=== PATIENT | male | born 1990 | race Caucasian/White ===

== ENCOUNTER 2017-10-18 04:30 | Emergency (ER) | payer SELFPAY ==
[2017-10-18 02:32] VITALS: BP 141/77; PULSE 66; RESP 16; TEMP 36.3; O2SAT 98; BMI 30.7
--- NOTE | 2017-10-18 02:38 | CT_ITS ---
STUDY: CT ABDOMEN AND PELVIS WITH CONTRAST - VENOGRAM REASON FOR EXAM: Male, 27 years old. Right upper quadrant pain. RADIATION DOSAGE (If Supplied By Facility): CTDIvol = ( 17.21 ) mGy, DLP = ( 1223.63 ) mGycm TECHNIQUE: Transaxial images were obtained from the dome of the diaphragm to the symphysis pubis without oral contrast. 100ml ml of Isovue 300 contrast was administered. Multiplanar coronal and sagittal images were reformatted. CT venogram protocol utilized, with delayed images performed during venous phase. Individualized Dose Optimization Techniques Were Used For This CT. COMPARISON: September 29, 2013 FINDINGS: The visualized lung bases are unremarkable. The visualized portions of the heart are within normal limits. Normal liver. There are gallstones present. Normal spleen. Normal pancreas. Normal bilateral adrenal glands. Normal right kidney. Normal left kidney. Normal visualized stomach. Normal small intestine. Normal colon. The appendix is visualized and appears normal. Normal abdominal aorta. No retroperitoneal adenopathy. IVC is patent. Normal urinary bladder. There is a small umbilical hernia containing fat. Normal osseous structures. CT/Abdomen/Pelvis W IV Cont ONLY IMPRESSION: No acute intra-abdominal process. Cholelithiasis. Small fat-containing umbilical hernia. Electronically Signed: Lara Burton MD at 16:58 EDT Tel , Service support ,
[2017-10-18 02:45] LABS: Absolute Lymphocyte Count 2.87 X10^3/ul (0.83-4.51); Absolute Neutrophil Count 3.5 X10^3/uL (2.0-7.7); Basophil# 0.04 X10^3/uL; Basophil% 0.6 % (0-1); Eosinophil# 0.36 X10^3/uL; Hematocrit 42.5 % (40-54); Lymphocyte # 2.87 X10^3/ul (4.0); Lymphocyte % 39.7 % (19-41); Mean Corp Hgb Conc 35.3 g/gl (32-36); Mean Corpuscular Hgb 32.1 pg (27.0-32.0); Mean Corpuscular Volume 90.8 fL (80-94); Monocyte% 6.9 % (0-10); Neutrophil # 3.45 X10^3/uL (2.7-7.7); Neutrophil % 47.7 % (47-70); Platelet Count 173 K/mm3 (150-450); RBC Distribution Width CV 13.1 % (11.6-14.6); RBC Distribution Width SD 43.2 fl (35.1-43.9); Red Blood Count 4.68 M/mm3 (4.6-6.2); White Blood Count 7.2 K/mm3 (4.4-11.0)
[2017-10-18] MEDS: proMETHazine 25 MG/ML Syringe 6.25 MG IV (02:46)
[2017-10-18] MEDS: 0.9% Normal Saline 1,000 ML 1000 ML IV (02:46)
[2017-10-18] MEDS: Morphine 4 MG/ML Syringe IV (02:47)
[2017-10-18 02:49] LABS: POSITIVE COUNT NO; POSITIVE DIFFERENTIAL NO; POSITIVE MORPHOLOGY NO
[2017-10-18 03:03] LABS: ALB/GLOB Ratio 1.2 RATIO (0.9-2.4); AST(SGOT) 20 U/L (15-37); Alanine Aminotransfer ALT/SGPT 38 U/L (16-61); Albumin, Serum 3.8 g/dL (3.2-5.0); Alkaline Phosphatase 89 U/L (45-117); Anion Gap 6 (5-15); BUN 15 mg/dL (7-18); Calcium,Total 8.7 mg/dL (8.5-10.1); Chloride 109 mmol/L (98-107); Creatinine, Serum 1.07 mg/dL (0.70-1.30); EST Glomerular Filtration Rate 88 mL/min (>60); Est Glom Filt Rate - Afr Amer 106 mL/min (>60); Estimated Creatinine Clearance 120.57 ml/min; Globulin 3.2 g/dL (2.2-4.2); Glucose 97 mg/dL (74-106); Lipase 394 U/L (73-393); Potassium 3.9 mmol/L (3.5-5.1); Sodium Level 142 mmol/L (136-145)
--- NOTE | 2017-10-18 04:15 | ED.VISSUMM ---
- ER Visit Summary Date of Service: 10/18/17 Chief Complaint: [] Abdominal pain History of Present Illness: The patient is a 27 M [] complaining of abdominal pain beginning 1 hour prior to arrival. Reports nausea. Denies vomiting. Denies fever. Denies similar previous episodes of abdominal pain denies recent illness. Past medical history of GERD. Past rectal history of tonsils and adenoids and cyst removal from the temporal area. Physical Examination: [] Afebrile, vital signs stable. 27-year-old male in no acute distress. Degeneration of the abdomen reveals a right upper quadrant and epigastric tenderness. No Meraz's sign. No guarding or rebound tenderness. Remainder of exam is unremarkable. Test Results: [] CBC, BMP, LFTs, lipase all within normal limits. CT of the abdomen pelvis with IV contrast is pending at this time. Emergency Department Course and Treatment: [] Given intravenous fluids, Phenergan, morphine. On serial exam had improvement of symptoms. Treatment Plan: [] Disposition: [] Discharge, stable. Impression: [] Abdominal pain, unknown etiology This note was generated with [employer] dictation software. It may contain incorrect words, spelling, and punctuation that were not noted in review of the chart prior to signing ED Disposition - Plan for ED Patient: Chief Complaint: Abd Pain Referrals: Care Physician,No Primary [Primary Care Provider] -
--- NOTE | 2017-10-18 04:30 | DT_ITS ---
This patient was seen during an EMR downtime October 18, 2017 - October 25, 2017. This patient may have a combination of paper and electronic documentation or all paper documentation. All documentation is viewable within the e-chart portion of [facility] for each patient visit.
--- NOTE | 2017-10-25 08:05 | ED.RN ---
see dowtime documentation
== END 2017-10-18 08:23 | disposition home or self-care (01) ==
LOC: ED 10-20 10:51
PROVIDERS: Emergency Provider Emergency Medicine
DX: K21.9 Gastro-esophageal reflux disease without esophagitis (principal); F17.200 Nicotine dependence, unspecified, uncomplicated
CPT/HCPCS: 74177; 80053; 83690; 85025; 96374; 96375; 99282; J7030; Q9967

== ENCOUNTER 2018-05-28 16:45 | Emergency (ER) | payer OTHER, SELFPAY ==
[2018-05-28 16:47] VITALS: BP 128/82; PULSE 81; RESP 16; TEMP 37.1; O2SAT 100; BMI 29.5
--- NOTE | 2018-05-28 16:56 | US_ITS ---
STUDY: ABDOMINAL ULTRASOUND - RIGHT UPPER QUADRANT REASON FOR VISIT: Male, 28 years old. Right upper quadrant pain, nausea. TECHNIQUE: Ultrasound evaluation of the right upper quadrant was performed with real-time and static andujar-scale imaging. TECHNICAL QUALITY: Adequate. COMPARISON: CT abdomen pelvis 10/18/2017. FINDINGS: Liver: The liver measures 17.5 cm. There is normal echogenicity of the liver. The bile ducts are within normal limits. There is hepatic color flow. The direction of portal flow is hepatopetal. There is no demonstrated mass lesion. Gallbladder: Normal distended gallbladder. The gallbladder wall measures 4 mm. There is a positive sonographic Meraz's sign. There is no pericholecystic fluid. The gallbladder is filled with shadowing stones and sludge. Common Bile Duct (C.B.D.): The common bile duct measures 5 mm. Pancreas: Normal size of the head, body and tail of the pancreas. There is normal echogenicity of the pancreas. There is no demonstrated pancreatic mass or cyst. Right Kidney: Normal size of the right kidney. The right kidney measures 12.6 x 5.1 x 5.5 cm. Normal renal cortex. The right cortex measures 1.8 cm. There is no demonstrated renal mass or cyst. There is no right hydronephrosis. US/Gallbladder IMPRESSION: Cholelithiasis and gallbladder sludge with positive sonographic Meraz's sign, consistent with acute cholecystitis. Electronically Signed: Cori Cisneros MD at 19:56 EST Tel , Service support ,
--- NOTE | 2018-05-28 16:58 | ED.VISSUMM ---
- ER Visit Summary Date of Service: 05/28/18 Chief Complaint: Right upper quadrant abdominal pain History of Present Illness: The patient is a 28 M who has right upper quadrant abdominal pain. Is been increasing for the past 4 days. It sharp and in the right upper quadrant and radiates around to his back. Food makes it worse. He thought it might have been ulcers so he has been trying Rolaids and Zantac along with his daily omeprazole with no relief. He has nausea without vomiting. No diarrhea. Some slight constipation. He had an evaluation earlier last year that showed gallstones. He followed up with Dr. Espinoza who did endoscopies and found H. pylori so he completed the antibiotic regimen. Physical Examination: Vital signs reviewed. HEENT exam unremarkable. Heart is regular rate and rhythm without murmurs. Lungs are clear to auscultation. Abdomen is soft with tenderness in the right upper quadrant. Extremities reveal no edema. Skin exam normal. Neurologic exam normal. Test Results: Laboratory studies normal. Ultrasound reveals stones with sludge. There is a positive Meraz sign. Radiologist is remarking of positive cholecystitis Emergency Department Course and Treatment: I spoke with Dr. Espinoza. Patient received 2 doses of pain medications. He stated that the patient would likely not have surgery until Wednesday if the patient was okay with staying until Wednesday he will see the patient. Patient states that he would rather go home and come back on Wednesday. I will give him Rimrock for pain. He will follow-up with Dr. Espinoza Treatment Plan: [] Disposition: Discharge Impression: Cholelithiasis This note was generated with [employer] dictation software. It may contain incorrect words, spelling, and punctuation that were not noted in review of the chart prior to signing ED Disposition - Plan for ED Patient: Chief Complaint: Abd Pain Referrals: Care Physician,No Primary [Primary Care Provider] -
[2018-05-28] MEDS: Ondansetron 4 MG/2 ML Vial IV (17:11)
[2018-05-28] MEDS: Morphine 4 MG/ML Syringe IV (17:12)
[2018-05-28 17:26] LABS: Absolute Neutrophil Count 6.4 X10^3/uL (2.0-7.7); Basophil# 0.06 X10^3/uL; Basophil% 0.6 % (0-1); Eosinophil# 0.47 X10^3/uL; Eosinophils% 4.6 % (0-5); Hematocrit 40.1 % (40-54); Hemoglobin 14.2 g/dl (13.0-16.5); Lymphocyte % 25.7 % (19-41); Mean Corp Hgb Conc 35.4 g/gl (32-36); Mean Corpuscular Hgb 31.6 pg (27.0-32.0); Mean Corpuscular Volume 89.3 fL (80-94); Mean Platelet Vol. 10.1 fl (6.2-12.0); Monocyte# 0.54 X10^3/uL; Monocyte% 5.3 % (0-10); Neutrophil # 6.42 X10^3/uL (2.7-7.7); Neutrophil % 63.6 % (47-70); Platelet Count 208 K/mm3 (150-450); RBC Distribution Width CV 12.6 % (11.6-14.6); RBC Distribution Width SD 40.8 fl (35.1-43.9); Red Blood Count 4.49 M/mm3 (4.6-6.2); White Blood Count 10.1 K/mm3 (4.4-11.0)
[2018-05-28 17:27] LABS: POSITIVE COUNT NO; POSITIVE DIFFERENTIAL NO; POSITIVE MORPHOLOGY NO
[2018-05-28 17:54] LABS: AST(SGOT) 18 U/L (15-37); Alanine Aminotransfer ALT/SGPT 25 U/L (16-61); Albumin, Serum 3.9 g/dL (3.2-5.0); Alkaline Phosphatase 84 U/L (45-117); Anion Gap 9 (5-15); BUN 12 mg/dL (7-18); BUN/Creat Ratio 14.1 RATIO (10-20); Bilirubin, Direct < 0.05 mg/dL (0.00-0.30); Calcium,Total 8.6 mg/dL (8.5-10.1); Chloride 108 mmol/L (98-107); Creatinine, Serum 0.85 mg/dL (0.70-1.30); EST Glomerular Filtration Rate 114 mL/min (>60); Est Glom Filt Rate - Afr Amer 138 mL/min (>60); Estimated Creatinine Clearance 150.43 ml/min; Globulin 3.2 g/dL (2.2-4.2); Glucose 109 mg/dL (74-106); Lipase 289 U/L (73-393); Potassium 3.8 mmol/L (3.5-5.1); Protein, Total 7.1 g/dL (6.4-8.2); Sodium Level 141 mmol/L (136-145)
[2018-05-28] MEDS: HYDROmorphone 1 MG/ML Syringe IV (18:32)
[2018-05-28 18:52] VITALS: BP 133/64; PULSE 63; RESP 14; O2SAT 99
--- NOTE | 2018-05-28 20:20 | ED.DEP ---
ED Disposition - Plan for ED Patient: Disposition: Home or Assisted Living Chief Complaint: Abd Pain Instructions: ED Abdominal Pain Gallstone Poss Prescriptions: Oxycodone HCl/Acetaminophen [Percocet 5/325] 1 tab PO Q6H PRN PRN 3 Days #10 tab PRN Reason: Pain Referrals: Care Physician,No Primary [Primary Care Provider] -
[2018-05-28 20:27] VITALS: BP 130/66; PULSE 70; RESP 16; O2SAT 98
== END 2018-05-28 20:28 | disposition home or self-care (01) ==
PROVIDERS: Emergency Provider Emergency Medicine
DX: K80.20 Calculus of gallbladder without cholecystitis without obstruction (principal); K59.00 Constipation, unspecified; Z72.0 Tobacco use
CPT/HCPCS: 76705; 80048; 80076; 83690; 85025; 96374; 96375; 99283; J7030; J2405

== ENCOUNTER 2018-05-30 08:52 | Day surgery (SDC) | payer OTHER, SELFPAY ==
[2018-05-30] VITALS (9 sets, daily range): BP systolic 104–142; BP diastolic 49–80; PULSE 86–110; RESP 16–18; TEMP 36.8–37.6; O2SAT 93–99; BMI 29.5
--- NOTE | 2018-05-30 | GALL_PTH ---
PATIENT: DERRICK RAYMUNDO LOC[place] [facility] [place][id number] AGE/SX: 28/M ROOM: RE05/30/[address]: Dr. Dustin Shanks MD : 1990 BED: DIS: 05/30/2018 SPEC #: [id number] RECD: 05/30/18 14:20 STATUS: DEVI NANCY #: [id number] SALOME: 05/30/18 00:[address]: Dustin Shanks DEPT: SURGICAL PATHOLOGY RECD BY: Fortino Merrill ENTERED: 05/30/18 14:20 SP TYPE: IRASEMA NGUYEN DR: No Primary Care Phys Tissues: Gallbladder, NOS Procedures: Surgery Specimen Level III HEADER OPERATION: Laparoscopic cholecystectomy with IOC PRE-OP DIAGNOSIS: Cholelithiasis, abdominal pain TISSUE SUBMITTED: Gallbladder MICROSCOPIC DIAGNOSIS Gallbladder, cholecystectomy: Acute and chronic cholecystitis and cholelithiasis with denudation and autolytic changes of mucosa. Benign lymphoid tissue. See comment. AM:magdy 05/31/18 COMMENT A fragment of benign lymphoid tissue is present adjacent to the wall of the gallbladder and in the subcutaneous tissue. MICROSCOPIC DESCRIPTION Slides are reviewed. GROSS DESCRIPTION Received is one container labeled with the patient's name and designated gallbladder. The specimen consists of a gallbladder measuring 10 cm in length and up to 5 cm in diameter. The external surface is pink-dumont, smooth and glistening for the most part. Focally it is granular, hemorrhagic and contains cautery artifact. The gallbladder contains hemorrhagic bile and a few brownish stones measuring in aggregate 0.5 x 0.8 x 0.3 cm and 0.1 to 0.3 cm in greatest dimension. The mucosa is congested and hemorrhagic. The gallbladder wall measures up to 0.3 cm in thickness. Video Tape Transferrer sections from the gallbladder and the cystic duct are submitted in one cassette. / SJ:magdy 05/30/18 TC:2 CPT: 04889
--- NOTE | 2018-05-30 09:00 | RAD_ITS ---
HISTORY: ABDOMINAL PAIN COMPARISON: Gallbladder ultrasound dated 05/28/2018 TECHNIQUE: Intraoperative cholangiogram FINDINGS: Intraoperative cholangiogram was performed. There is appropriate contrast within the intrahepatic biliary ductal system as well as the common bile duct. There is a punctate area of filling defect within the cystic duct measuring less than 1 cm. Unsure if this represents a stone. No surgical clips are noted to represent cholecystectomy at this time. There appears to be multiple filling defects within the gallbladder suggesting stones. IMPRESSION: Intraoperative cholangiogram with possible filling defect in the cystic duct. Contrast seen within the gallbladder with multiple filling defects suggesting stones. Please see performing physician report for full details. Electronically Signed: Lai Carcamo DO at 12:52 EST Tel , Service support , RAD/Cholangiogram/ O R,Initial
--- NOTE | 2018-05-30 09:03 | EKG12_ITS ---
Test Reason : PREOP Blood Pressure : / mmHG Vent. Rate : 085 BPM Atrial Rate : 085 BPM P-R Int : 158 ms QRS Dur : 094 ms QT Int : 356 ms P-R-T Axes : 056 054 029 degrees QTc Int : 423 ms Normal sinus rhythm Normal ECG Confirmed by ROMULO GARIBAY, MO ([id number]), photographic editor MAGEN RUIZ ([id number]) on 06/02/2018 4:20:50 PM Referred By: Dustin Shanks Confirmed By:MO SEBASTIAN MD
--- NOTE | 2018-05-30 09:18 | PCM.HP.BLA ---
History and Physical Date of Admission: 05/30/18 HISTORY AND PHYSICAL ? Wing Bower 1990 ? REFERRING PHYSICIAN: ??[facility] ? CHIEF COMPLAINT: ??Consult (Consult Gallbladder) ? HPI: Wing is a 27 year old male with a complaint of right upper quadrant pain. ?The patient has had symptoms of right upper quadrant pain for 2 weeks. ?The symptoms were severe on October 18, 2017. ?The pain does ?radiate to the back and shoulder. ?Food does ?aggravate his symptoms. ?Alleviating factors include: none. ? The patient was seen by the emergency room physician on that date. ?Wing underwent a CT scan. ?These tests demonstrated cholelithiasis. The patient is referred for evaluation and treatment. ? The patient however still has a relatively complex history. ?Aside from that event, he notes significant reflux that has been progressive for approximately 6 weeks. ?He will occasionally last for a week and typically presents the duration of the day. ?He notes vomiting and pain with these episodes. ?He says omeprazole helps the pain, but this still occurs not infrequently. ? The patient also notes relatively irregular bowel activity. ?He notes up to 4-5 bowel movements per day which are variable from formed to liquid. ?He denies issues with constipation. ?He states he notes blood in his stools 2-3 times per week. ?Occasionally it dark or bright red, but occasionally has dark to black stool. ?He notes occasional pain with wiping. ? He has not had previous upper or lower endoscopy. ? The patient notes he is a heavy smoker. ?He denies alcohol use. ?He does take ibuprofen regularly. ? ?I performed upper and lower?endoscopy on November 19, 2017. ?The patient was found to have duodenitis with ulcerations, gastritis and distal esophagitis. ?Colonoscopy was unremarkable. ?Pathology demonstrated: ? FINAL DIAGNOSIS 1. Stomach, antrum, biopsy (A) - Antral type gastric mucosa with changes of chronic active Helicobacter gastritis. - Helicobacter organisms identified on H&E. 2. Esophagogastric junction, biopsy (B) - Inflamed cardiac type gastric mucosa, negative for intestinal metaplasia. - Fragments of squamous mucosa with no diagnostic abnormalities. 3. Colon, random, biopsy (C) - Colonic mucosa with no diagnostic abnormalities. MC/gp 11/30/2017 ? ? The patient notes a solution of his?complaints since the procedure?and starting Prilosec 40 mg daily. ?I did not initially have the results demonstrating H. pylori gastritis?He noted resolution of those complaints after H. Pylori treatment. ? He now presented to [facility] ER with RUQ pain through to his back. ?U/S demonstrated cholelithiasis with a positive Meraz's sign. ?Labs were normal. ?He was given Percocet and discharged with instructions to return if his pain did not improve. ? SIGNIFICANT MEDICAL PROBLEMS: PAST MEDICAL HISTORY PAST MEDICAL HISTORY Diagnosis Date ? Chronic sphenoidal sinusitis ? per ct ? Closed fracture of lateral malleolus 12/15 ? Migraine, unspecified, with intractable migraine, so stated, without mention of status migrainosus ? ? Migraine, referred Dr Tilley neuro: ? Other closed fractures of distal end of radius (alone) 06/18 ? left ? Other closed fractures of distal end of radius (alone) ? left ? Other closed fractures of distal end of radius (alone) ? left ? Snoring ? ? ? OPERATIONS: PAST SURGICAL HISTORY PAST SURGICAL HISTORY Procedure Laterality Date ? CIRCUMCISION,OTHR ? ? ? COLONOSCOP W/ OR W/O [facility] SPEC ? 11/19/2017 ? Colonoscopy ? EGD W/O OR W/BRUSH/WASH ? 11/19/2017 ? EGD ? PAST SURGICAL HISTORY OF ? ? ? [facility]- cyst removed from [facility] ? REMOVAL ADENOIDS,PRIMARY,<12 Y/O ? ? ? Adenoidectomy ? REMOVAL OF TONSILS,<12 Y/O ? ? ? Tonsillectomy ? SEPTOPLASTY ? 11/2016 ? TOOTH EXTRACTION ? CURRENT MEDICATIONS: CURRENT MEDICATIONS Current Outpatient Prescriptions: Omeprazole (PRILOSEC) 40 mg capsule Take 1 capsule by mouth twice daily for 14 days. Disp: 28 capsule Rfl: 0 Omeprazole (PRILOSEC) 40 mg capsule Take 1 capsule by mouth once daily. Disp: 30 capsule Rfl: 0 Omeprazole (PRILOSEC) 40 mg capsule Take 1 capsule by mouth once daily. Disp: 30 capsule Rfl: 2 NAPROXEN (NAPROSYN ORAL) Take by mouth. Disp: Rfl: CYANOCOBALAMIN, VITAMIN B-12, (VITAMIN B-12 ORAL) Take by mouth. Disp: Rfl: ondansetron orally disintegrating (ZOFRAN ODT) 4 mg disintegrating tablet Take 1 tablet by mouth every 6 hours as needed for Nausea/Vomiting. Disp: 20 tablet Rfl: 0 ? No current facility-administered medications for this visit. ? ALLERGIES: Augmentin [Amoxicillin-Pot Clavulanate]; Hydrocodone-Acetaminophen; Penicillins; Seroquel [Quetiapine] ? PERSONAL HISTORY: SOCIAL HISTORY Social History ??Marital status: Single ?Spouse name: ?Years of education: ?Number of children: ? Social History Main Topics ??Smoking status: Current Every Day Smoker ?Packs/day: 1.00 ?Years: 0.00 ?Types: Cigarettes ??Smokeless tobacco: Never Used ?Comment: .5-1 ppd ??Alcohol use: Yes ?Comment: every 3 months ??Drug use: No ? FAMILY HISTORY: FAMILY HISTORY FAMILY HISTORY Problem Relation Age of Onset ? other (SLE [Other]) Maternal Aunt ? ? other (SLE [Other]) Maternal Grandmother ? ? Cancer Paternal Uncle ?3 paternal uncles with lung cancer, smokers ? Lipids Grandchild ? ? Thyroid Maternal Aunt ? ? REVIEW OF SYMPTOMS: ??The review of systems data was entered by the nurse and reviewed by me ? ? REVIEW OF SYSTEMS: ?General:???The patient denies fatigue, denies weight loss, denies weight gain, denies feeling hot, and denies feelings of cold. ?Eyes: ?The patient denies glaucoma, NOTES eye injury/surgery, wears glasses or contacts. ?Ear/Nose/Throat: ?The patient NOTES allergies, denies hayfever, NOTES ear infections, and denies bloody noses. ?Cardiovascular: ?The patient denies chest pain, denies heart disease, denies high blood pressure,denies cardiac stent, denies prior heart attack, denies irregular heart beat, denies high cholesterol, ?denies poor circulation, denies heart failure, other cardiac issues, denies claudication, denies cold feet, denies peripheral arterial stent. ?Respiratory: ?The patient denies tuberculosis, NOTES pneumonia, denies frequent cough, denies pulmonary embolism, denies shortness of breath, and denies coughing up blood. ?Gastrointestinal: ?The patient denies difficulty swallowing, NOTES acid reflux, NOTES ulcers, denies vomiting, denies jaundice/hepatitis, NOTES gallbladder problems, denies black or tarry stools, NOTES hemorrhoids, NOTES bleeding from rectum, denies diverticulitis, denies constipation, NOTES diarrhea, NOTES loss of stool control, and denies hernias. ?Kidney/Bladder: ?The patient NOTES kidney stones, denies urine infections, and denies bloody urine. ?Skin: ?The patient denies a history of skin cancer, denies bleeding/changing moles, and denies a history of skin rash. ?Neurologic: ?The patient denies a history of epilepsy/convulsions, NOTES headaches, denies head/spinal injuries, and denies stroke/TIA. ?Psychiatric: ?The patient denies psychiatric medications, denies depression, and denies voices, denies substance abuse. ?Endocrine: ?The patient denies thyroid disorders, denies diabetes, and denies hormonal problems. ?Hematologic: ?The patient denies a history of bruising, denies bleeding, and denies anemia, denies blood clots. ?Infections: ?The patient denies a history of measles and mumps, denies rheumatic fever, and denies sexually transmitted diseases. ?Musculoskeletal: ?The patient NOTES back pain/injury, denies back problems, denies sciatica, denies knee/foot trouble, denies arthritis, or denies gout. ? ? PHYSICAL EXAMINATION: ? General: ?The patient is 27 year old male, well nourished, well hydrated in no acute distress. ?The patient is oriented to time, place, and person. ? VITALS: ?There were no vitals taken for this visit.??There is no height or weight on file to calculate BMI.? ? HEENT: ?Normal cephalic, ataumatic, pupils are equally round, sclera are anicteric, mucous membranes are moist, oropharynx is clear. ?Neck has no masses, asymmetry or lymphadenopathy. ?Thyroid is unremarkable. ? Respiratory: ?Clear to auscultation and percussion. ?Normal respiratory excursion and pattern. ? Cardiac: ?Examination is regular rate and rhythm. ? Abdominal exam: ?Normoactive bowel sounds, Soft, tender in the right upper quadrant ?with no palpable masses. ?No hepatosplenomegaly. ?No palpable hernias. ? Rectal exam: exam deferred ? Extremities: ?no clubbing, cyanosis or edema. ?No adenopathy. ? Other: ? LABORATORY VALUES: As Noted ? RADIOLOGIC STUDIES: ?As Noted Above ? Assessment ? IMPRESSION: Cholelithiasis, abdominal pain, reflux, blood per rectum ? PLAN: ?? ? My plan is to perform a laparoscopic cholecystectomy with intraoperative choleangiogram. ??The planned surgical procedure was discussed extensively with the patient. ?The risks, benefits, anticipated outcomes and possible complications were mentioned. ?My staff has also explained the procedure in understandable terms and the patient was given the option to take printed material concerning the planned procedure. ?The patient had the opportunity to ask questions concerning the planned procedure. ?The patient freely consents to the planned procedure. ? Planned Procedure: LAPAROSCOPIC CHOLECYSTECTOMY WITH INTRAOPERATIVE CHOLEANGIOGRAM - 10747-571 ? Planned antibiotic: clindamycin 900mg IVPB real estate transaction coordinator to OR ? SCDs needed - Yes ? Energy Efficiency Engineer Needed - Yes ? Diagnoses: (K80.20) Calculus of gallbladder without cholecystitis without obstruction ?(primary encounter diagnosis) ? Dustin Shanks MD
[2018-05-30] MEDS: Bupivacaine Mpf 0.5% 30 ML VIAL (11:06)
--- NOTE | 2018-05-30 11:14 | OP.PCM_ITS ---
Report of Operation Date of Procedure: 05/30/18 Pre-Operative Diagnosis: acute cholecystitis Post-Operative Diagnosis: acute cholecystitis - patchy gangrenous, normal IOC Surgery/Procedure Performed:: laparoscopic cholecystectomy with intraoperative cholangiogram psychology intern: Nanette Rea Type of Anesthesia:: General Anesthesiologist: Richie Bernal - ASA2 Specimen's removed: gallbladder Estimated Blood Loss (mL): 50 Fluids Replaced: 1100 Description of Procedure: The patient was brought to the operating suite. Sign in was performed verifying patient, site, position, SCIP antibiotic prophylaxis- 900 mg of clindamycin and DVT prophylaxis with SCDs. Following induction of general anesthetic. The patient?s abdomen was prepped and draped in the usual fashion. Timeout was performed verifying patient, site, position. Local anesthetic was injected below the umbilicus. Incision made and dissection carried down to the umbilical root fascia. 2 stay sutures were placed. Incision made in the fascia, the peritoneum entered under direct visualization. A 10 mm Cheney trocar was inserted and secured with the stay sutures. Pneumoperitoneum to 15 mmHg was insufflated. Visual inspection revealed acute adhesions to the gallbladder. 3 right upper quadrant 5 ports were placed in the standard position. the omentum was peeled down off the gallbladder revealing a grossly inflamed gallbladder with patchy gangrenous necrosis. An aspirating needle was used to aspirate part of the bilateral of the gallbladder to be grasped. The gallbladder was grasped retracted upward and outward. Dissection was carried out in Calot?s triangle. When a critical view of the neck of the gallbladder funneling of the cystic duct with no signs of aberrant ductal structures were seen, a clip was placed on the neck of the gallbladder cystic duct junction. A partial ductotomy was made. A Cholangiocath was inserted into the duct and secured with a clip. Intraoperative cholangiogram was performed demonstrating filling of the cystic duct filling the common bile duct and emptying into the du odenum without signs of obstruction area and the clip and catheter were removed. 2 clips placed on the cystic duct and the cystic duct divided. Dissection was continued until the cystic artery was clearly dissected and identified. The artery was then doubly clipped proximally singly clipped distally and divided. The gallbladder was then dissected free from the gallbladder fossa using electrocautery. The gallbladder was placed in an Endobag and removed through the umbilical port site. An 0 PDS [id number] suture was placed around the umbilical port site defect. Pneumoperitoneum was reestablished. The gallbladder fossa was checked for hemostasis. With good hemostasis, the area was irrigated and aspirated to clear. 5mm ports were removed under direct visualization with no signs of bleeding. Pneumoperitoneum was released. The Cheney trocar was removed. The umbilical fascial suture was secured area did skin was closed with interrupted 4-0 Monocryl subcuticular sutures. Steri-Strips and bandages were applied. The patient was brought to recovery room in stable condition. - Admit VTE Documentation VTE Present on Admission: No VTE Mechan Device Prophylaxis: SCD's VTE Pharm Prophylaxis ordered?: No
--- NOTE | 2018-05-30 11:19 | DCINST_ITS ---
Discharge Diet: Light diet - advance as tolerated Discharge Activity: May Not Drive - for 2-3 days or while taking narcotic pain medications., - - Do not drive, work heavy equipment or sign legal documents for 24 hours. May shower in (days): 1 - with the bandage in place. Additional Activity Instructions:: Pain medication may cause nausea. You should typically eat light foods as you take your pain medications. Pain medication may also cause constipation. If this is a problem for you, please discuss with your doctor. Call your doctor if your incision/area has: Continuous Slow Oozing, Sudden Increased Bleeding, Increased Pain/ Swelling, Increased Redness, Foul Smelling Discharge Call your doctor if you observe: Fever of 101 or Higher Suture Line Care: Avoid Pulling/Pushing, Avoid Pinching/Bending Additional Dressing/Incision Instructions:: Leave operative bandaids on for 2 days. When you remove dressing, leave Steri-Strips on until your follow-up appointment, or until the Steri-Strips fall off on their own. Allergies/Adverse Reactions: Allergies hydrocodone Allergy (Verified 05/28/18 16:46) Rash Penicillins Allergy (Verified 05/28/18 16:46) Unknown amoxicillin Adverse Reaction (Verified 05/28/18 16:46) Rash amoxicillin trihydrate [From Augmentin] Adverse Reaction (Verified 05/28/18 16:46) Diarrhea potassium clavulanate [From Augmentin] Adverse Reaction (Verified 05/28/18 16:46) Diarrhea quetiapine fumarate [From Seroquel] Adverse Reaction (Verified 05/28/18 16:46) Other Medications to take at Discharge RX: Clindamycin [Cleocin] 150 mg PO TID 05/28/18 RX: Ibuprofen [Motrin] 600 mg PO Q8H 05/28/18 RX: Naproxen [Naprosyn] 500 mg PO BID PRN PRN 05/28/18 RX: Omeprazole 40 mg PO DAILY 05/28/18 RX: Oxycodone HCl/Acetaminophen [Percocet 5-325] 1 tab PO Q6H PRN PRN 3 Days #14 tab 05/30/18 The following prescriptions were given: RX: Oxycodone HCl/Acetaminophen [Percocet 5-325] 1 tab PO Q6H PRN PRN 3 Days #14 tab PRN Reason: Pain Primary Care Physician: Care Physician,No Primary [Primary Care Provider] - Test Results: Test results from this visit will be discussed in further detail at your follow- up appointment, if applicable. Please Follow Up With: Dustin Shanks MD - Please call [phone] to schedule an appointment. When: 7 days after your surgery
== END 2018-05-30 13:33 | disposition home or self-care (01) ==
LOC: SDC 08:54 → AC 08:56
PROVIDERS: Referring Provider Surgery; Visit Provider Surgery
PROC: (CPT 47610; principal; 2018-05-30 07:10)
DX: K80.12 Calculus of gallbladder with acute and chronic cholecystitis without obstruction (principal); K82.A1 Gangrene of gallbladder in cholecystitis; J32.3 Chronic sphenoidal sinusitis; K21.9 Gastro-esophageal reflux disease without esophagitis; F17.200 Nicotine dependence, unspecified, uncomplicated
CPT/HCPCS: 00790; 47563; 74300; 76000; 88304; 93005; J7120; J2405

== ENCOUNTER 2022-02-03 14:47 | Emergency (ER) | payer OTHER, BC, SELFPAY ==
[2022-02-03 14:48] VITALS: BP 129/93; PULSE 69; RESP 16; TEMP 36.2; O2SAT 98
--- NOTE | 2022-02-03 15:41 | EX.ED.UPPERE ---
HPI History of Present Illness HPI Narrative: Patient presents with injury to his left middle finger that occurred today at work. Patient states he got it crushed between 2 objects. Patient states the pain is aching and throbbing. Patient states it is worse with any palpation or movement. Patient admits to some tingling in the tip of his left middle finger. Patient denies any weakness. Patient states his last tetanus was within 10 years. Patient denies any other injuries. Chief Complaint: Upper Extremity Injury Informant: patient Occured/Mechanism Mechanism/Context: Yes crush Onset/Context/Timing Onset: Today Context: Sudden Onset Timing: Continuous Quality of Pain: Aching and Throbbing Location: Left middle finger Worsened by: Palpation Relieved by: Nothing Narrative Tetanus Immunization: 5-10 years PFSH PFSH Medical History no medical history no medical history Home Medications clindamycin HCl 150 mg capsule 150 mg PO TID 05/28/18 [History Last Taken Unknown] ibuprofen 600 mg tablet 600 mg PO Q8H 05/28/18 [History Last Taken Unknown] naproxen 500 mg tablet 500 mg PO BID PRN PRN Pain 05/28/18 [History Last Taken Unknown] omeprazole 40 mg capsule,delayed release 40 mg PO DAILY 05/28/18 [History Last Taken Unknown] clindamycin HCl 300 mg capsule (Cleocin HCl) 300 mg PO Q6H #40 CAPSULES 02/03/22 [Rx Last Taken Unknown] oxycodone-acetaminophen 5 mg-325 mg tablet 1 tab PO Q6H PRN PRN Pain 3 days #12 TABLETS 02/03/22 [Rx Last Taken Unknown] Allergy/AdvReac Type Severity Reaction Status Date / Time hydrocodone Allergy Rash Verified 02/03/22 14:47 Penicillins Allergy Unknown Verified 02/03/22 14:47 amoxicillin AdvReac Rash Verified 02/03/22 14:47 amoxicillin trihydrate AdvReac Diarrhea Verified 02/03/22 14:47 [From Augmentin] potassium clavulanate AdvReac Diarrhea Verified 02/03/22 14:47 [From Augmentin] quetiapine fumarate AdvReac Other Verified 02/03/22 14:47 [From Seroquel] Surgical History (Updated 02/03/22 @ 15:[address] Devyn Mckeon DO) Hx of cholecystectomy Social History Smoking Status: Current every day smoker tobacco type: cigarettes and e-cigarettes ROS ROS ED Constitutional Constitutional ED: Denies chills or fever(s) Eyes Eyes: Denies blurry vision or change in vision ENT ENT ED: Denies rhinorrhea or sore throat Cardiovascular Cardiovascular: Denies chest pain or palpitations Respiratory/Chest Respiratory/Chest: Denies cough or dyspnea Gastrointestinal Gastrointestinal: Denies nausea or vomiting Genitourinary Genitourinary ED: Denies dysuria or hematuria Musculoskeletal Musculoskeletal: Denies back pain or neck pain Integumentary Denies abscess or rash Neurologic Neurologic: Denies headache(s) or weakness Allergic/Immunologic Allergic/Immunologic ED: Denies mouth swelling or urticaria EXAM Physical Exam Const Vital Signs: 02/03/22 14:48 Temperature 97.2 F L Temperature Source Temporal Pulse Rate 69 Respiratory Rate 16 Blood Pressure 129/93 H Blood Pressure Mean 105 Pulse Ox 98 Positive well nourished and well developed General Appearance ED: well developed and NAD HEENT Reports moist mucous membranes normocephalic Neck full ROM and supple Extremity Extremity Narrative: There is tenderness over the middle and distal phalanges of the left middle finger. There is complete avulsion of the nail plate. There is some mild bleeding noted. Range of motion was limited in all motions of the PIP and DIP joints secondary to pain. Sensation was intact to light touch in all digits. Capillary refill was less than 2 seconds in all digits. Neuro oriented x3, CN's II-XII intact bilaterally, moves all extremities, no focal motor deficits and no sensory deficits noted Sensorium / Orientation: alert Motor Exam: strength 5/5 throughout MDM MDM MDM Narrative Medical decision making narrative: Patient was given a dose of morphine here. Patient was given a dose of clindamycin. X-rays of the left middle finger were obtained. There are 3 views. On my interpretation, there is a comminuted fracture of the distal phalanx. There is displacement noted. There is some soft tissue swelling. Radiologist also interpreted the x-rays and agrees. Patient was advised of his findings. The left middle finger was cleaned and anesthetized 1% lidocaine via digital block. The nail plate was nearly completely avulsed. The nailbed laceration was closed with 4 simple interrupted #5-0 Vicryl sutures under sterile technique. The skin laceration was closed with 5 simple interrupted #5-0 nylon sutures under sterile technique. Patient tolerated the procedure well. Bacitracin and tube gauze dressing was applied. Aluminum foam finger splint was applied. Patient was given prescriptions for [place] and clindamycin. Patient was instructed to follow-up with his primary care physician in 5 to 7 days. Patient was also given a referral for the [facility]. Patient was also given a referral for orthopedics. Patient understood and was agreeable with the plan. All questions were answered. Procedures Other Procedures Procedure(s): The wound was cleaned and irrigated with copious amounts of normal saline. The wound was anesthetized with 1% plain lidocaine via digital block. The nailbed laceration was closed with 4 simple interrupted #5-0 Vicryl sutures under sterile technique. The skin was closed with 5 simple interrupted #5-0 nylon sutures under sterile technique. The nail plate was replaced. Patient tolerated the procedure well. Bacitracin dressing was applied. Discharge Plan Triage Chief Complaint: Upper Extremity Injury ED Provider: Devyn Mckeon Dx/Rx/DC Orders Clinical Impression: Open displaced fracture of distal phalanx of left middle finger Instructions: ED Fracture, Finger, Open Prescriptions: New clindamycin HCl [Cleocin HCl] 300 mg capsule 300 mg PO Q6H Qty: 40 0RF oxycodone-acetaminophen [oxycodone-acetaminophen] 5-325 mg tablet 1 tab PO Q6H PRN PRN (Reason: Pain) 3 Days Qty: 12 0RF No Action clindamycin HCl 150 MG capsule 150 mg PO TID omeprazole 40 MG capsule,delayed release(DR/EC) 40 mg PO DAILY ibuprofen 600 MG tablet 600 mg PO Q8H naproxen 500 MG tablet 500 mg PO BID PRN PRN (Reason: Pain) Primary Care Provider: Care Physician,No Primary Referrals: Care Physician,No Primary [Primary Care Provider] - [facility] [Non-Staff] - 3-5 Days Disposition Disposition: Home, Self Care
[2022-02-03] MEDS: Morphine 4 MG/ML Syringe IV (15:48)
--- NOTE | 2022-02-03 15:50 | RAD_ITS ---
INDICATION: Injury/Pain EXAMINATION/TECHNIQUE: X-RAY - LEFT HAND XR Fingers Min 2 Views 3 VIEWS COMPARISON: 03/09/2012. FINDINGS: Comminuted fracture of the tuft of the distal phalange of the third digit. Overlying soft tissue swelling is seen. RAD/Finger(s) Min 2 Views IMPRESSION: Fracture tuft distal phalange of the third digit Electronically Signed: Vidal Earl MD at 16:13 EDT ,
[2022-02-03] MEDS: Clindamycin 600 MG/50 ML BAG 100 MG IV (16:32)
[2022-02-03] MEDS: Lidocaine 1% (20 ml mdv) 20 ML Vial INFILT (17:02)
[2022-02-03] MEDS: oxyCODONE 5 MG Tablet PO (18:37)
[2022-02-03 18:54] VITALS: BP 150/86; PULSE 63; RESP 18; O2SAT 99
== END 2022-02-03 19:05 | disposition home or self-care (01) ==
PROVIDERS: Emergency Provider Emergency Medicine; Visit Provider Emergency Medicine
DX: S62.623A Displaced fracture of middle phalanx of left middle finger, initial encounter for closed fracture (principal); F17.210 Nicotine dependence, cigarettes, uncomplicated; W23.0XXA Caught, crushed, jammed, or pinched between moving objects, initial encounter; Y99.0 Civilian activity done for income or pay; Y92.89 Other specified places as the place of occurrence of the external cause
CPT/HCPCS: 11760; 73140; 99285; A4216

== ENCOUNTER 2025-02-16 07:43 | Day surgery (SDC) | payer OTHER, SELFPAY ==
[2025-02-16] VITALS (7 sets, daily range): BP systolic 110–124; BP diastolic 56–75; PULSE 52–71; RESP 12–18; TEMP 36.1–36.7; O2SAT 98–100; BMI 27.9
--- OUTSIDE RECORDS SUMMARY | 2025-02-16 07:48 | XMS RPT_ITS | CCD ---
Author Organization [facility] Care Team Providers Care It Architecture Consultant Name Role Phone GERARDO HINES Primary Care Unavailable Arnol GARIBAY, Dr. Chi Attending Provider Jayme SLP TEACHER-C, Cara Primary Care Provider [phone] Jayme SLP TEACHER-C, Cara Referring Provider [phone] Alon Ambrose Attending Unavailable Cara Delacruz Primary Care Unavailable Alon Ambrose Attending Unavailable Cara Delacruz Referring Unavailable Cara Delacruz Primary Care Unavailable Allergies Allergy Classification Reported Allergen(s) Allergy Type Date of Onset Reaction(s) Facility (2 sources) Amoxicillin Drug Allergy 02-04-20 [facility] (3 sources) Amoxicillin; Translations: [amoxicillin trihydrate] Drug Allergy 02-04-20 [facility] (2 sources) HYDROcodone Drug Allergy 02-04-20 [facility] (3 sources) Penicillins; Translations: [PENICILLINS] Allergy to substance 07-02-19 Unknown [facility] (3 sources) QUEtiapine; Translations: [quetiapine fumarate] Drug Allergy 02-04-20 Other [facility] (3 sources) potassium clavulanate; Translations: [potassium clavulanate] Propensity to adverse reactions 02-04-20 [facility] (2 sources) Acetaminophen / HYDROcodone; Translations: [HYDROCODONE-ACET AMINOPHEN] Drug Allergy 11-05-19 Hives [facility] (2 sources) QUEtiapine; Translations: [QUETIAPINE] Drug Allergy 11-05-19 Other: See Comments [facility] (2 sources) AMOXICILLIN-POT CLAVULANATE; Translations: [AMOXICILLIN-POT CLAVULANATE] Propensity to adverse reactions to drug (disorder) 01-29-20 Diarrhea [facility] (1 source) Penicillins Drug Intolerance 07-02-19 18 Unknown [facility] (1 source) Amoxicillin Drug Allergy 01-20-20 [facility] (1 source) HYDROcodone Drug Allergy 01-20-20 [facility] (1 source) Penicillins Drug allergy (disorder) 01-20-20 [facility] Medications Current Medications Medication Drug Class(es) Dates Sig (Normalized) Sig (Original) 24 hr amphetamine aspartate 3.75 mg / amphetamine sulfate 3.75 mg / dextroamphetamine saccharate 3.75 mg / dextroamphetamine sulfate 3.75 mg extended release oral capsule (1 source) Central Nervous System Stimulant Start: 5 Dextroamphetamine- Amphetamine 15 mg capsule,extended release 24hr Active 1 NMA PO EVERY MORNING 0 January 19, 2025 12:00am azithromycin 500 mg oral tablet (1 source) Macrolide Antimicrobial Start: End: 4 take 1 tablet by mouth once daily azithromycin (ZITHROMAX) 500 mg tablet Indications: Other acute nonsuppurative otitis media of left ear, recurrence not specified Take 1 tablet by mouth once daily for 5 days. 5 tablet 0 07/20/2023 07/25/2023 Active Comment on above: Take [address] [facility] once daily for 5 days. benzonatate 100 mg oral capsule (1 source) Non-narcotic Antitussive Start: End: 4 take 2 capsules by mouth three times daily as needed benzonatate (TESSALON PERLE) 100 mg capsule Indications: Flu-like symptoms Take 2 capsules by mouth three times a day as needed for up to 10 days. 60 capsule 0 07/20/2023 07/30/2023 Active Comment on above: Take 2 capsules by [facility] three times a day as needed for up to 10 days. dicyclomine hydrochloride 10 mg oral tablet (1 source) Anticholinergic Start: 5 take 10-20 mg by mouth every six hours as needed Dicyclomine 10 mg capsule Active 10 - 20 mg PO EVERY 6 HOURS as needed for cramps January 19, 2025 12:00am Completed/Discontinued Medications Medication Drug Class(es) Dates Sig (Normalized) Sig (Original) acetaminophen 325 mg / oxyCODONE hydrochloride 5 mg oral tablet (6 sources) Opioid Agonist Start: 02-03-2022 End: 01-19-2025 Oxycodone-Acetamino phen 5-325 mg tablet Discontinued 1 {tbl} PO EVERY 6 HOURS NEEDED as needed for Pain 12 3 0 February 03, 2022 January 19, 2025 1:51pm Open displaced fracture of distal phalanx of left middle finger Start: 02-03-2022 take 1 tablet by danitza th every six hours as needed Oxycodone-Acetaminophen Active 1 TABLET PO EVERY 6 HOURS NEEDED 12 3 February 03, 2022 Start: 05-28-2018 End: 05-31-2018 Oxycodone-Acetaminophen 1 TA BLET tablet Discontinued 1 {tbl} PO EVERY 6 HOURS NEEDED as needed for Pain 14 3 0 May 30, 2018 12:18pm May 30, 2018 1:00am May 31, 2018 1:08am Cholelithiasis Calculus of gallbladder without cholecystitis without obstruction Start: 05-28-2018 End: 05-31-2018 take 1 tablet by mouth every six hours as needed Oxycodone-Acetaminophen Discontinued 1 TABLET PO EVERY 6 HOURS NEEDED 14 3 May 30, 2018 12:18pm May 31, 2018 1:08am clindamycin 300 mg oral capsule (4 sources) Lincosamide Antibacterial Start: 02-03-2022 End: 01-19-2025 take 1 capsule by mouth every six hours Clindamycin Hcl (Cleocin Hcl) 300 mg capsule Discontinued 300 mg PO EVERY 6 HOURS 40 0 February 03, 2022 12:00am January 19, 2025 1:51pm Start: 05-28-2018 End: 01-19-2025 take 1 capsule by mouth three times daily Clindamycin Hcl 150 MG capsule Discontinued 150 mg PO THREE TIMES A DAY May 28, 2018 1:00am January 19, 2025 1:51pm ibuprofen 600 mg oral tablet (2 sources) Nonsteroidal Anti-inflammatory Drug Start: 05-28-2018 End: 01-19-2025 take 1 tablet by mouth every eight hours Ibuprofen 600 MG tablet Discontinued 600 mg PO Q8H May 28, 2018 1:00am January 19, 2025 1:51pm naproxen 500 mg oral tablet (2 sources) Nonsteroidal Anti-inflammatory Drug Start: 05-28-2018 End: 01-19-2025 take 1 tablet by mouth twice daily as needed for pain Naproxen 500 MG tablet Discontinued 500 mg PO TWICE DAILY NEEDED as needed for Pain May 28, 2018 1:00am January 19, 2025 1:51pm omeprazole 40 mg delayed release oral capsule (3 sources) Proton Pump Inhibitor Start: 05-28-2018 End: 01-19-2025 take 1 capsule by mouth once daily Omeprazole 40 MG capsule,delayed release(DR/EC) Discontinued 40 mg PO DAILY May 28, 2018 1:00am January 19, 2025 1:51pm Comment on above: Take 1 capsule by mouth once daily. Problems Active Problems Problem Classification Problem Date Documented Da te Episodic/Chronic Abdominal pain (3 sources) Abdominal pain; Translations: [Unspecified abdominal pain] Onset: 5 01-19-2025 Episodic Esophageal disorders (3 sources) Gastroesophageal reflux disease; Translations: [Gastro-esophageal reflux disease without esophagitis] Onset: 5 01-19-2025 Chronic Fracture of upper limb (2 sources) Open fracture of distal phalanx of middle finger; Translations: [Displaced fracture of distal phalanx of left middle finger, initial encounter for open fracture] 02-11-2022 Episodic Hemorrhoids (1 source) Hemorrhoids; Translations: [Unspecified hemorrhoids] 01-19-2025 Episodic Other gastrointestinal disorders (2 sources) Diarrhea; Translations: [Diarrhea, unspecified] 01-19-2025 Episodic Other gastrointestinal disorders (1 source) Diarrhea, unspecified; Translations: [Diarrhea, unspecified] Onset: Episodic Past or Other Problems Problem Classification Problem Date Documented Da te Episodic/Chronic Other connective tissue disease (1 source) Patellar tendonitis; Translations: [Patellar tendinitis, unspecified knee] Onset: 12-01-2005 12-01-2005 Episodic Results Test Name Value Interpretation Reference Range Facil ity Surgery Visit Reporton 01-19 Surgery Visit Report [facility] [address] [place] [address] OFFICE VISIT Date of Service: 01/19/25 MR#: [id number] Acct: [id number] Name: DERRICK RAYMUNDO Rep #: [id number] : 1990 Provider: Dr. Alon lala MD Age/Sex: 34/M Location: [facility] Status: Signed Intake Vital Signs 02/03/22 14:48 01/19/25 13:50 Height 6 ft 1 in 6 ft 1 in Weight: 220 lb BMI 29.0 BP 127/71 H Blood Pressure Location Rt brachial Position Sitting Respiration 18 Pulse 72 Pulse Source Monitor Temp 97.9 F Temp Source Temporal Pulse Oximetry (%) 99 Oxygen Delivery Method room air Intake Visit Reasons: CHANGE IN BOWELS Chief Complaint: change in bowels Is patient in pain?: Yes (abdominal cramps) Allergies hydrocodone Allergy (Verified 01/19/25 13:51) Rash Penicillins Allergy (Verified 01/19/25 13:51) Unknown amoxicillin Adverse Reaction (Verified 01/19/25 13:51) Rash amoxicillin trihydrate (From Augmentin) Adverse Reaction (Verified 01/19/25 13:51) Diarrhea potassium clavulanate (From Augmentin) Adverse Reaction (Verified 01/19/25 13:51) Diarrhea quetiapine fumarate (From Seroquel) Adverse Reaction (Verified 01/19/25 13:51) Other [facility] Medical History (Updated 01/19/25 @ 13:[address] Alon Ambrose MD) GERD (gastroesophageal reflux disease) Hemorrhoids Diarrhea Abdominal pain Surgical History Hx of cholecystectomy Social History (Updated 01/19/25 @ 13:50 by Tamara Contreras LPN) Smoking Status: Current every day smoker tobacco type: cigarettes and e-cigarettes alcohol intake: never substance use type: marijuana HPI HPI HPI: Patient is a 34-year-old male who comes in with diarrhea and increased bowel movements. The patient reports he has 5-10 bowel movements a day. He says has been going on for about 7 years since he had his gallbladder out. He said anything greasy makes him have pain and diarrhea. He reports bloating as well and he does have a history of H. pylori infection. His last scopes were in 2018 and he had multiple ulcers. ROS General General: No weight change, appetite, fatigue, colon cancer, breast cancer or weakness HEENT HEENT: No difficulty swallowing, eye injury, eye surgery, swollen glands or hoarseness Endo Endocrine: No thyroid disease, diabetes mellitus, thyroid cancer, Hair loss, heat intolerance or cold intolerance Skin Skin: No rash or changing moles Musc Musculoskeletal: No back problems, arthritis, rheumatoid arthritis, gout or joint pain Cardio Cardiovascular: No murmur, pacemaker, heart disease, atrial fibrillation, high blood pressure, heart attack, heart stent, palpitations, shortness of breath with exertion or chest pain Psych Psychiatric: Yes anxiety; No depression or hearing voices Resp Respiratory: No shortness of breath, No sleep apnea, No cough, No COPD, No asthma, No emphysema and No wheezing Gastro Gastrointestinal: Yes abdominal pain, No nausea or vomiting, Yes diarrhea, No constipation, Yes blood in stool, Yes acid reflux, Yes hemorrhoids, Yes ulcers, No gallbladder problem and No black,tarry stools Zafar Hematologic: No blood thinners, No blood disorders, No bleeding, No anemia and No blood clots Neuro Neurologic: No numbness, No tingling and No weakness Exam Const General: cooperative Orientation: alert and oriented x3 HENMT Head: normal to inspection Neck Neck: normal visual inspection and full ROM Chest Chest palpation inspection: normal inspection of the chest Resp Effort Inspection: normal respiratory effort Auscultation: clear to auscultation bilaterally Cardio Rate: regular rate Rhythm: regular rhythm GI Inspection: non-distended Palpation: soft and nontender Skin General: no rashes or lesions noted Neuro General: patient alert and patient oriented x3 Extrem General: full ROM Psych Appearance: grossly normal Mental Status: mental status grossly normal Assessment and Plan Assessment and Plan (1) GERD (gastroesophageal reflux disease): Status: Acute Qualifiers: Esophagitis presence: esophagitis presence not specified Qualified Code(s): K21.9 - Gastro- esophageal reflux disease without esophagitis (2) Abdominal pain: Status: Acute Qualifiers: Abdominal location: epigastric Qualified Code(s): R10.13 - Epigastric pain (3) Diarrhea: Status: Acute Qualifiers: Diarrhea type: unspecified type Qualified Code(s): R19.7 - Diarrhea, unspecified Orders: Orders Colonoscopy Today EGD Today Medications: Discontinued clindamycin HCl (Cleocin HCl) Discontinued Reason: Order Completed 300 mg PO Q6H 40 CAPSULES 0RF oxycodone-acetaminophe n 5-325 mg Discontinued Reason: Pt no longer takin (more content not included)... [facility] DERRICK RAYMUNDO ([id number]) 1990 M Date Time Provider Department 07/21/23 FRANCES RUDOLPH [facility] During your visit today, we recorded the following information about you: Frances Rudolph APRN.WHOLESALE ACCOUNT MANAGER 07/21/2023 7:13 AM Signed Please notify that covid/flu/rsv testing negative. Continue with plan of care as discussed during visit. Maribell Reynolds 07/21/2023 8:26 AM Signed Left message for patient to return call. Jyoti David LPN 07/21/2023 9:06 AM Signed Pt notified of results AND message from provider, pt voiced understanding. Jyoti Campos LPN Allergies As of Date: 07/21/2023 Noted Allergy Reaction AUGMENTIN (AMOXICILLIN-POT CLAVUL*01/28/2005 6 - Diarrhea HYDROCODONE-ACETAMINOP HEN 11/04/2017 4 - Hives PENICILLINS 07/02/2017 16 - Unknown SEROQUEL (QUETIAPINE) 11/04/2017 14 - Other: See Comments Comments: Blurred vision and slurred speech Date Reviewed: 07/20/2023 Reviewed by: Maribell Reynolds - Fully Assessed Reason for Visit: Results [95] Prescriptions as of 07/21/2023 - azithromycin (ZITHROMAX) 500 mg tablet Take 1 tablet by mouth once daily for 5 days. - benzonatate (TESSALON PERLE) 100 mg capsule Take 2 capsules by mouth three times a day as needed for up to 10 days. - Omeprazole (PRILOSEC) 40 mg capsule Take 1 capsule by mouth once daily. Problem List As Of Date 07/21/2023 Noted Resolved PATELLAR TENDINITIS [M76.50] 12/01/2005 Encounter Status:Closed by JYOTI CAMPOS on 07/21/23 Normal [facility] CNOVon 07-20-2023 CNOV Office Visit ([facility]WSTR ) DERRICK RAYMUNDO ([id number]) 1990 M Date Time Provider Department 07/20/23 5:45 PM MAGGIE BLACK [facility] During your visit today, we recorded the following information about you: Temperature Pulse Respiration Blood pressure 98.5 degrees 80/minute 16/minute 110/70 Weight 95.7 kg Maggie Black APRN.CNP 07/20/2023 5:52 PM Addendum ASSESSMENT/PLAN: 1. Flu-like symptoms - ICD9: 780.99, ICD10: R68.89 (primary diagnosis) - COVID AND INFLUENZA A/B NAAT, ROUTINE - BENZONATATE 100 MG CAPSULE 2. Other acute nonsuppurative otitis media of left ear, recurrence not specified - ICD9: 381.00, ICD10: H65.192 - Will begin treatment with Zithromax - Supportive care with plenty of fluids, rest, and analgesia prn. - AZITHROMYCIN 500 MG TABLET - Follow-up with your PCP in 3-5 days if symptoms have not improved or sooner if symptoms worsen - Discussed red flags and need for immediate medical evaluation if any occur. - Discussed supportive care treatment with fluids, rest and analgesia. - Discussed expected course of illness MIKE Crow Kathy, APRN.CNP 07/20/2023 5:56 PM Signed Subjective Nasal Congestion Associated symptoms include congestion, coughing, ear pain, shortness of breath and a sore throat. Derrick Raymundo is a 33 year old male who presents with sore throat, cough and congestion for the past 5 days. He developed left ear pain last night. He has not had a fever. He took ibuprofen and tylenol. Denies any known sick contacts. Review of Systems Constitutional: Positive for malaise/fatigue. Negative for fever. HENT: Positive for congestion, ear pain and sore throat. Respiratory: Positive for cough and shortness of breath. Cardiovascular: Negative for chest pain. Gastrointestinal: Positive for nausea. Negative for vomiting. Musculoskeletal: Negative for myalgias. Skin: Negative for itching and rash. BP 110/70 Pulse 80 Temp 36.9 ?C (98.5 ?F) Resp 16 Wt 95.7 kg (211 lb) SpO2 99% BMI 27.09 kg/m? PAST MEDICAL HISTORY Diagnosis Date Chronic sphenoidal sinusitis per ct Closed fracture of lateral malleolus 12/15 Migraine, unspecified, with intractable migraine, so stated, without mention of status migrainosus Migraine, referred Dr Tilley neuro: Other closed fractures of distal end of radius (alone) 06/18 left Other closed fractures of distal end of radius (alone) left Other closed fractures of distal end of radius (alone) left Snoring PAST SURGICAL HISTORY Procedure Laterality Date ADENOIDECTOMY PRIMARY Adenoidectomy CIRCUMCISION AGE >28 DAYS COLONOSCOPY FLX DX W/COLLJ SPEC WHEN PFRMD 11/19/2017 Colonoscopy ESOPHAGOGASTRODUODENOS COPY TRANSORAL DIAGNOSTIC 11/19/2017 EGD LAPAROSCOPY SURG CHOLECYSTECTOMY 05/30/2018 Cholecystectomy, lap PAST SURGICAL HISTORY OF [place]- cyst removed from Lt adventist SEPTOPLASTY 11/2016 TONSILLECTOMY PRIMARY/SECONDARY Tonsillectomy TOOTH EXTRACTION ALLERGIES Augmentin [Amoxicillin-Pot Clavulanate], Hydrocodone-Acetaminop hen, Penicillins, and Seroquel [Quetiapine] MEDICATIONS azithromycin (ZITHROMAX) 500 mg tablet Take 1 tablet by mouth once daily for 5 days. benzonatate (TESSALON PERLE) 100 mg capsule Take 2 capsules by mouth three times a day as needed for up to 10 days. Omeprazole (PRILOSEC) 40 mg capsule Take 1 capsule by mouth once daily. (Patient not taking: Reported on 07/20/2023) FAMILY HISTORY Problem Relation Age of Onset other (SLE [Other]) Maternal Aunt other (SLE [Other]) Maternal Grandmother Cancer Paternal Uncle 3 paternal uncles with lung cancer, smokers Lipids Grandchild Thyroid Maternal Aunt Social History Tobacco Use Smoking status: Every Day Packs/day: 1 Types: Cigarettes Smokeless tobacco: Never Tobacco comments: .5-1 ppd Substance Use Topics Alcohol use: Yes Comment: every 3 months Drug use: No Objective Physical Exam Vitals and nursing note reviewed. Constitutional: General: He is not in acute distress. Appearance: Normal appearance. He is not ill-appearing. HENT: Right Ear: Tympanic membrane, ear canal and external ear normal. Left Ear: Ear canal and external ear normal. Tympanic membrane is erythematous and bulging. Nose: Nose normal. Mouth/Throat: Mouth: Mucous membranes are moist. Pharynx: Uvula midline. Posterior oropharyngeal erythema present. No oropharyngeal exudate. Cardiovascular: Rate and Rhythm: Normal rate and regular rhythm. Heart sounds: Normal heart sounds. Pulmonary: Effort: Pulmonary effort is normal. No respiratory distress. Breath sounds: Normal breath sounds. No wheezing or rales. Musculoskeletal: Cervical back: Neck supple. Lymphadenopathy: Cervical: No cervical adenopathy. Skin: General: Skin is warm and dry. Findings: No e (more content not included)... Normal [facility] FLUABV + SARS-CoV-2 Pnl Resp DUSTY+prbon 07-20-2023 Influenza virus A and B RNA and SARS-CoV-2 (COVID-19) N gene panel DUSTY+probe (Resp) COVID 19 RESULT: Not detected The method used is RT-PCR or an equivalent NAAT method. Reference Range (the expected result in uninfected individuals): Not detected INFLUENZA A PCR: Not detected INFLUENZA B PCR: Not detected [facility] Comment on above: Performed By: #### [id number] #### [facility] CLIA [id number] [address] [place] [address] [place] Vital Signs Date Time Vital Sign Value Performing Clinician Jameson lopez 01-19-2025 13:50-0400 Body height 185.42 cm Cara NELSON Work Phone: [facility] 01-19-2025 13:50-0400 Body mass index (BMI) [Ratio] 29 kg/m2 Cara NELSON Work Phone: [facility] 01-19-2025 13:50-0400 Body temperature 97.9 [degF] Cara Bishopgar SLP TEACHER-C Work Phone: [facility] 01-19-2025 13:50-0400 Body weight 99.79 kg Cara Bishopgar SLP TEACHER-C Work Phone: [facility] 01-19-2025 13:50-0400 Diastolic blood pressure 71 mm[Hg] Cara Jayme SLP TEACHER-C Work Phone: [facility] 01-19-2025 13:50-0400 Heart rate 72 /min [place] Jayme SLP TEACHER-C Work Phone: [facility] 01-19-2025 13:50-0400 Respiratory rate 18 /min Cara Jayme SLP TEACHER-C Work Phone: [facility] 01-19-2025 13:50-0400 SaO2% (BldA) [Mass fraction] 99 % Cara Jayme SLP TEACHER-C Work Phone: [facility] 01-19-2025 13:50-0400 Systolic blood pressure 127 mm[Hg] [place] Jayme SLP TEACHER-C Work Phone: [facility] 02-03-2022 18:54-0400 Diastolic blood pressure 86 mm[Hg] [facility] Work Phone: 02-03-2022 18:54-0400 Heart rate 63 /min [facility] Work Phone: 02-03-2022 18:54-0400 Respiratory rate 18 /min [facility] Work Phone: 02-03-2022 18:54-0400 SaO2% (BldA) [Mass fraction] 99 % [facility] Work Phone: 02-03-2022 18:54-0400 Systolic blood pressure 150 mm[Hg] [facility] Work Phone: 02-03-2022 14:48-0400 Body height 185.42 cm [facility] Work Phone: 02-03-2022 14:48-0400 Body mass index (BMI) [Ratio] 30 kg/m2 [facility] Work Phone: 02-03-2022 14:48-0400 Body temperature 97.2 [degF] [facility] Work Phone: 02-03-2022 14:48-0400 Body weight 103.4 kg [facility] Work Phone: Encounters Encounter Date Encounter Type Care Provider Facility Start: 02-16-2025 ambulatory Alon Barba lity:[facility] Start: 01-19-2025 End: 01-19-[address] Alon Ambrose MD -[facility] Work Phone: Start: 01-19-2025 End: 01-19-2025 ambulatory Cara Delacruz SLP TEACHER-C Work Phone: -[facility] Start: 07-21-2023 Telephone encounter Frances feliz APRN.CNP Work Phone: [facility] Comment on above: Results Start: 07-20-2023 End: 07-20-2023 ambulatory GERARDO HINES Facility:[facility] Start: 02-03-2022 End: 02-03-2022 Emergency department patient visit [facility] Procedures Date Procedure Procedure Detail Performing Clinician Start: 02-03-2022 Diagnostic radiograp hy of finger Plan of Treatment Date Care Activity Detail Author Start: 05-17-2023 Depression Assessment Depression Assessment [facility] Start: 01-15-2023 Covid-19 Vaccine () Covid-19 Vaccine () [facility] Start: 01-15-2023 Influenza vaccination Influenza Vaccine (#1) [facility] Start: 06-14-2016 Urine microalbumin profile DTaP,Tdap,Td Vaccine (7 - Td or Tdap) [facility] Start: 2008 Hepatitis C screening Hepatitis C Screening [facility] Start: 2008 HIV screening HIV Screening [facility] Start: 1996 Pneumococcal vaccination Pneumococcal Vaccine (1 of 2 - PCV) [facility] Colonoscopy [facility] Patient Education ED Fracture, F princess, Open [facility] Work Phone: Patient referral [facility] Work Phone: [facility] Immunizations Immunization Date Immunization Notes Care Provider Jordi dubose 06-14-2006 tetanus toxoid, redu magda diphtheria toxoid, and acellular pertussis vaccine, adsorbed Frances Ronni CONTROL TOWER OPERATOR.WHOLESALE ACCOUNT MANAGER Work Phone: [facility] Work Phone: 09-10-2003 hepatitis B vaccine, pediatric or pediatric/adolescent dosage Frances Ronni CONTROL TOWER OPERATOR.[facility] Work Phone: [facility] Work Phone: 04-09-2003 hepatitis B vaccine, pediatric or pediatric/adolescent dosage Frances Ronni CONTROL TOWER OPERATOR.[facility] Work Phone: [facility] Work Phone: 01-08-2003 hepatitis B vaccine, pediatric or pediatric/adolescent dosage Frances Ronni CONTROL TOWER OPERATOR.WHOLESALE ACCOUNT MANAGER Work Phone: [facility] Work Phone: 12-19-2002 measles, mumps and rubella virus vaccine Frances Ronni CONTROL TOWER OPERATOR.WHOLESALE ACCOUNT MANAGER Work Phone: [facility] Work Phone: Payers Date Payer Category Payer Self-pay [id number] 2025 Unknown [id number] 2023 Unknown PENDING 2022 Unknown [employer] PPO OOS [id number] 2022-Present [phone] [address] [place] [address] PPO [id number] 2016 [id number] Unknown [id number] Unknown [id number] Social History Date Type Detail Facility Start: 02-03-2022 Tobacco smoking stat us AZIS Unknown if ever smoked [facility] Work Phone: Start: 05-30-2018 Cigarettes [facility] Start: 1990 Sex Assigned At Male W [facility] Start: 07-20-2023 End: 01-19-2025 Tobacco smoking status NHIS Smokes tobacco daily [facility] History of tobacco use Cigarette Smoker C [facility] Start: 04-23-2020 End: 07-20-2023 Cigarettes smoked current (pack per day) - Reported 1 [facility] Start: 07-20-2023 Tobacco use and exposure Smokeless tobacco non-user [facility] Start: 07-20-2023 Alcohol intake Current drinke r of alcohol (finding) [facility] Start: 04-23-2020 End: 07-20-2023 Tobacco use panel [facility] National Score (1-10 0), lower number is lower risk Not on file [facility] Start: 07-20-2023 Tobacco Comment .5-1 ppd [facility] Start: 11-19-2017 Alcohol Comment every 3 months [facility] Start: 1990 Sex Assigned At Not on file C [facility] Medical Equipment Procedure Code Equipment Code Equipment Original Text Equipment Identifier Dates Total cholecystectomy with exploration of common bile duct CLIP,HEMOLOCK DWAYNE ZACARIAS FDA Start: 05-30-2018 Total cholecystectomy with exploration of common bile duct CLIP,HEMOLOCK DWAYNE ZACARIAS FDA Start: 05-30-2018 Total cholecystectomy with exploration of common bile duct CLIP,HEMOLOCK MED [facility] FDA Start: 05-30-2018 Total cholecystectomy with exploration of common bile duct CLIP,HEMOLOCK [employer] RORYBENJAMIN FDA Start: 05-30-2018 Progress note 01-19-2025 Note Date & Type Note Facility 01-19-2025 Progress note [facility] Progress note 01-19-2025 Note Date & Type Note Facility 01-19-2025 Progress note Note Date/Time January 19, 2025 1:59pm [facility] [address] [place] [address] OFFICE VISIT Date of Service: 01/19/25 MR#: [id number] Acct: [id number] Name: DERRICK RAYMUNDO Rep #: [id number] : 1990 Provider: Dr. Jojo Ambrose MD Age/Sex: 34/M Location: [facility] Status: Signed Intake Vital Signs 02/03/22 14:48 01/19/25 13:50 Height 6 ft 1 in 6 ft 1 in Weight: 220 lb BMI 29.0 BP 127/71 H Blood Pressure Location Rt brachial Position Sitting Respiration 18 Pulse 72 Pulse Source Monitor Temp 97.9 F Temp Source Temporal Pulse Oximetry (%) 99 Oxygen Delivery Method room air Intake Visit Reasons: CHANGE IN BOWELS Chief Complaint: change in bowels Is patient in pain?: Yes (abdominal cramps) Allergies hydrocodone Allergy (Verified 01/19/25 13:51) Rash Penicillins Allergy (Verified 01/19/25 13:51) Unknown amoxicillin Adverse Reaction (Verified 01/19/25 13:51) Rash amoxicillin trihydrate (From Augmentin) Adverse Reaction (Verified 01/19/25 13:51) Diarrhea potassium clavulanate (From Augmentin) Adverse Reaction (Verified 01/19/25 13:51) Diarrhea quetiapine fumarate (From Seroquel) Adverse Reaction (Verified 01/19/25 13:51) Other [facility] Medical History (Updated 01/19/25 @ 13:[address] Alon Ambrose MD) GERD (gastroesophageal reflux disease) Hemorrhoids Diarrhea Abdominal pain Surgical History Hx of cholecystectomy Social History (Updated 01/19/25 @ 13:50 by Tamara Contreras LPN) Smoking Status: Current every day smoker tobacco type: cigarettes and e-cigarettes alcohol intake: never substance use type: marijuana HPI HPI HPI: Patient is a 34-year-old male who comes in with diarrhea and increased bowel movements. The patient reports he has 5-10 bowel movements a day. He says has been going on for about 7 years since he had his gallbladder out. He said anything greasy makes him have pain and diarrhea. He reports bloating as well and he does have a history of H. pylori infection. His last scopes were in 2018and he had multiple ulcers. ROS General General: No weight change, appetite, fatigue, colon cancer, breast cancer or weakness HEENT HEENT: No difficulty swallowing, eye injury, eye surgery, swollen glands or hoarseness Endo Endocrine: No thyroid disease, diabetes mellitus, thyroid cancer, Hair loss, heat intolerance or cold intolerance Skin Skin: No rash or changing moles Musc Musculoskeletal: No back problems, arthritis, rheumatoid arthritis, gout or joint pain Cardio Cardiovascular: No murmur, pacemaker, heart disease, atrial fibrillation, high blood pressure, heart attack, heart stent, palpitations, shortness of breath with exertion or chest pain Psych Psychiatric: Yes anxiety; No depression or hearing voices Resp Respiratory: No shortness of breath, No sleep apnea, No cough, No COPD, No asthma, No emphysema and No wheezing Gastro Gastrointestinal: Yes abdominal pain, No nausea or vomiting, Yes diarrhea, No constipation, Yes blood in stool, Yes acid reflux, Yes hemorrhoids, Yes ulcers, No gallbladder problem and No black,tarry stools Zafar Hematologic: No blood thinners, No blood disorders, No bleeding, No anemia and No blood clots Neuro Neurologic: No numbness, No tingling and No weakness Exam Const General: cooperative Orientation: alert and oriented x3 HENMT Head: normal to inspection Neck Neck: normal visual inspection and full ROM Chest Chest palpation & inspection: normal inspection of the chest Resp Effort & Inspection: normal respiratory effort Auscultation: clear to auscultation bilaterally Cardio Rate: regular rate Rhythm: regular rhythm GI Inspection: non-distended Palpation: soft and nontender Skin General: no rashes or lesions noted Neuro General: patient alert and patient oriented x3 Extrem General: full ROM Psych Appearance: grossly normal Mental Status: mental status grossly normal Assessment and Plan Assessment and Plan (1) GERD (gastroesophageal reflux disease): Status: Acute Qualifiers: Esophagitis presence: esophagitis presence not specified Qualified Code(s): K21.9 - Gastro-esophageal reflux disease without esophagitis (2) Abdominal pain: Status: Acute Qualifiers: Abdominal location: epigastric Qualified Code(s): R10.13 - Epigastric pain (3) Diarrhea: Status: Acute Qualifiers: Diarrhea type: unspecified type Qualified Code(s): R19.7 - Diarrhea, unspecified Orders: Orders Colonoscopy Today EGD Today Medications: Discontinued clindamycin HCl (Cleocin HCl) Discontinued Reason: Order Completed 300 mg PO Q6H 40 CAPSULES 0RF oxycodone-acetaminophen 5-325 mg Discontinued Reason: Pt no longer taking 1 TAB PO Q6H PRN 3 days PRN 12 TABLETS 0RF Pain S62.633B - Displaced fracture of distal phalanx of left middlefinger, initial encounter for open fracture Plan The patient is still having bloating and diarrhea after eating. This has been going on for 7 years. He has 5-10 bowel movements a day. I would like to perform an EGD and colonoscopy to evaluate. I will get random biopsies of the stomach to check for H. pylori and we will check for ulceration and I will get random biopsies of the colon to check for colitis or inflammatory bowel disease. I explained endoscopy in detail to the patient. I explained the risks includingbut not limited to stroke or heart attack with anesthesia, perforation of the GItract, bleeding, infection. I explained that any of these could necessitate further emergency surgery. The patient understands and all questions were answered sufficiently. The patient wishes to proceed with procedure. Alon Ambrose MD Pager: [facility] [address] [place] [address], [address] [place] [address] Office: Coding Level of Care Code Off vis,new,level 4 Diagnoses Gastroesophageal reflux disease, unspecified whether esophagitis present K21.9 Esophagitis presence: esophagitis presence not specified Epigastric pain R10.13 Abdominal location: epigastric Diarrhea, unspecified type R19.7 Diarrhea type: unspecified type 01/19/25 [id number] <Electronically signed by Alon mayorga MD> Date _ Alon Ibanez Signature: Date (if applicable) CC: OMAR Delacruz ~ [facility] Work Phone: Note 07-21-2023 Telephone Encounter - Jyoti Campos LPN - 07/21/2023 9:06 AM ESTTelephone Encounter - Maribell Reynolds MA - 07/21/2023 8:26 AM EST Note Date & Type Note Facility 07-21-2023 Miscellaneous Notes Formattin g of this note might be different from the original. Pt notified of results & message from provider, pt voiced understanding. Jyoti Campos LPN Left message for patient to return call. Maribell Reynolds Please notify that covid/flu/rsv testing negative. Continue with plan of care as discussed during visit. documented in this encounter [facility] Progress note 07-20-2023 Note Date & Type Note Facility 07-20-2023 Note HNO ID: [id number] Author: MAGGIE BLACK APRN.BOZENA Service: ? Author Type: Nurse Practitioner Type: Progress Notes Filed: 07/20/2023 17:56 Note Text: Subjective Nasal Congestion Associated symptoms include congestion, coughing, ear pain, shortness of breath and a sore throat. Derrick Raymundo is a 33 year old male who presents with sore throat, cough and congestion for the past 5 days. He developed left ear pain last night. He has not had a fever. He took ibuprofen and tylenol. Denies any known sick contacts. Review of Systems Constitutional: Positive for malaise/fatigue. Negative for fever. HENT: Positive for congestion, ear pain and sore throat. Respiratory: Positive for cough and shortness of breath. Cardiovascular: Negative for chest pain. Gastrointestinal: Positive for nausea. Negative for vomiting. Musculoskeletal: Negative for myalgias. Skin: Negative for itching and rash. BP 110/70 Pulse 80 Temp 36.9 ?C (98.5 ?F) Resp 16 Wt 95.7 kg (211 lb) SpO2 99% BMI 27.09 kg/m? PAST MEDICAL HISTORY Diagnosis Date Chronic sphenoidal sinusitis per ct Closed fracture of lateral malleolus 12/15 Migraine, unspecified, with intractable migraine, so stated, without mention of status migrainosus Migraine, referred Dr Tilley neuro: Other closed fractures of distal end of radius (alone) 06/18 left Other closed fractures of distal end of radius (alone) left Other closed fractures of distal end of radius (alone) left Snoring PAST SURGICAL HISTORY Procedure Laterality Date ADENOIDECTOMY PRIMARY Adenoidectomy CIRCUMCISION AGE >28 DAYS COLONOSCOPY FLX DX W/COLLJ SPEC WHEN PFRMD 11/19/2017 Colonoscopy ESOPHAGOGASTRODUODENOSCOPY TRANSORAL DIAGNOSTIC 11/19/2017 EGD LAPAROSCOPY SURG CHOLECYSTECTOMY 05/30/2018 Cholecystectomy, lap PAST SURGICAL HISTORY OF [place]- cyst removed from Lt adventist SEPTOPLASTY 11/2016 TONSILLECTOMY PRIMARY/SECONDARY Tonsillectomy TOOTH EXTRACTION ALLERGIES Augmentin [Amoxicillin-Pot Clavulanate], Hydrocodone-Acetaminophen, Penicillins, and Seroquel [Quetiapine] MEDICATIONS azithromycin (ZITHROMAX) 500 mg tablet Take 1 tablet by mouth once daily for 5 days. benzonatate (TESSALON PERLE) 100 mg capsule Take 2 capsules by mouth three times a day as needed for up to 10 days. Omeprazole (PRILOSEC) 40 mg capsule Take 1 capsule by mouth once daily. (Patient not taking: Reported on 07/20/2023) FAMILY HISTORY Problem Relation Age of Onset other (SLE [Other]) Maternal Aunt other (SLE [Other]) Maternal Grandmother Cancer Paternal Uncle 3 paternal uncles with lung cancer, smokers Lipids Grandchild Thyroid Maternal Aunt Social History Tobacco Use Smoking status: Every Day Packs/day: 1 Types: Cigarettes Smokeless tobacco: Never Tobacco comments: .5-1 ppd Substance Use Topics Alcohol use: Yes Comment: every 3 months Drug use: No Objective Physical Exam Vitals and nursing note reviewed. Constitutional: General: He is not in acute distress. Appearance: Normal appearance. He is not ill-appearing. HENT: Right Ear: Tympanic membrane, ear canal and external ear normal. Left Ear: Ear canal and external ear normal. Tympanic membrane is erythematous and bulging. Nose: Nose normal. Mouth/Throat: Mouth: Mucous membranes are moist. Pharynx: Uvula midline. Posterior oropharyngeal erythema present. No oropharyngeal exudate. Cardiovascular: Rate and Rhythm: Normal rate and regular rhythm. Heart sounds: Normal heart sounds. Pulmonary: Effort: Pulmonary effort is normal. No respiratory distress. Breath sounds: Normal breath sounds. No wheezing or rales. Musculoskeletal: Cervical back: Neck supple. Lymphadenopathy: Cervical: No cervical adenopathy. Skin: General: Skin is warm and dry. Findings: No erythema or rash. Neurological: Mental Status: He is alert. ASSESSMENT/PLAN: 1. Flu-like symptoms - ICD9: 780.99, ICD10: R68.89 (primary diagnosis) - COVID AND INFLUENZA A/B NAAT, ROUTINE - BENZONATATE 100 MG CAPSULE 2. Other acute nonsuppurative otitis media of left ear, recurrence not specified - ICD9: 381.00, ICD10: H65.192 - Will begin treatment with Zithromax - Supportive care with plenty of fluids, rest, and analgesia prn. - AZITHROMYCIN 500 MG TABLET - Follow-up with your PCP in 3-5 days if symptoms have not improved or sooner if symptoms worsen - Discussed red flags and need for immediate medical evaluation if any occur. - Discussed supportive care treatment with fluids, rest and analgesia. - Discussed expected course of illness Magige Black APRN.[facility] Evaluation note Note Date & Type Note Facility Evaluation note No assessment information [facility] Work Phone: Evaluation note Note Date & Type Note Facility Evaluation note Diagnosis Onset Date Resolution Abdominal pain acute January 19, 2025 1:35pm Diarrhea acute January 19, 2025 1:35pm GERD (gastroesophageal reflux disease) acute January 19 025 1:35pm [facility] Work Phone: Reason for referral (narrative) Note Date & Type Note Facility Reason for referral (narrative) No reason for referral information available [facility] Work Phone: Chief Complaint and Reason for Visit Chief Complaint UPPER EXTREMTIY Chief Complaint Admit Date CHANGE IN BOWELS January 19, 2025 1:35pm Reason for Visit Admit Date Abdominal pain January 19, 2025 1:35pm Diarrhea January 19, 2025 1:35pm GERD (gastroesophageal reflux disease) S eptember 2024 1:35pm Advance Directives No Advanced Directives Records Found Advance Directive Response Recorded Date/ Time Advance Directives No May 30, 2018 10:06am Living Will No February 03, 2022 3:08pm Power of Carnival Worker No January 3:08pm Advance Directive Response Recorded Date/ Time Advance Directives No May 30, 2018 10:06am Summary Purpose Family History No Family History Records FoundNo Family History Records Found Additional Source Comments Goals (unrecognized section and content) Goals may be documented in a n alternate sectionGoals may be documented in an alternate section (unrecognized sect ion and content) No Status Records FoundNo Status Records Found INFORMATION SOURCE (unrecogn ized section and content) DATE CREATED AUTHOR 07/21/2023 [facility] DATE CREATED AUTHOR AUTHOR'S ORGANIZ ATION 02/09/2025 [facility] Source Comments (unrecognize d section and content) In the event this informatio n is protected by the Federal Confidentiality of Alcohol and Drug Abuse Patient Records regulations: The Federal rules restrict any use of the information to criminally investigate or prosecute any alcohol or drug abuse patient.[facility] Reason for Visit (unrecogniz ed section and content) Reason Comments Results Care Teams (unrecognized sec tion and content) It Architecture Consultant Relationship Specialty Start Date End Date Gerardo Hines, SHAYAN.WHOLESALE ACCOUNT MANAGER, DNP [address] [place] [address] PCP - General Family Medicine 02/28/19 Team Status: Active Member Role/Relationship Status Dates OMAR Kidd Primary Care Provider Active Team Status: Inactive Member Role/Relationship Status Dates Dr. Alon Ambrose MD Attending Provider Active Start: January 19, 2025 End: January 19, 2025 OMAR Kidd Primary Care Provider Active Start: January 19, 2025 End: January 19, 2025 OMAR Kidd Referring Provider Active St art: January 19, 2025 End: January 19, 2025 FOR RECORDS PERTAINING TO PATIENTS WHO ARE OR HAVE BEEN ENROLLED IN A CHEMICAL DEPENDENCY/SUBSTANCEABUSE PROGRAM, SOME INFORMATION MAY BE OMITTED. This clinical summary was aggregated from multiple sources. Caution should be exercised in using it in the provision of clinical care. This summary normalizes information from multiple sources, and as a consequence, information in this document may materially change the coding, format and clinical context of patient data. In addition, data may be omitted in some cases. CLINICAL DECISIONS SHOULD BE BASED ON THE PRIMARY CLINICAL RECORDS. [employer] provides no warranty or guarantee of the accuracy or completeness of information in this document.
--- NOTE | 2025-02-16 08:07 | PCM.HP.BLA ---
History and Physical Date of Admission: 02/16/25 Intake Vital Signs 02/03/2214:48 01/19/2513:50 Height 6 ft 1 in 6 ft 1 in Weight: 220 lb BMI 29.0 BP 127/71 H Blood Pressure Location Rt brachial Position Sitting Respiration 18 Pulse 72 Pulse Source Monitor Temp 97.9 F Temp Source Temporal Pulse Oximetry (%) 99 Oxygen Delivery Method room air Intake Visit Reasons: CHANGE IN BOWELS Chief Complaint: change in bowels Is patient in pain?: Yes (abdominal cramps) Allergies hydrocodone Allergy (Verified 01/19/25 13:51) Rash Penicillins Allergy (Verified 01/19/25 13:51) Unknown amoxicillin Adverse Reaction (Verified 01/19/25 13:51) Rash amoxicillin trihydrate (From Augmentin) Adverse Reaction (Verified 01/19/25 13:51) Diarrhea potassium clavulanate (From Augmentin) Adverse Reaction (Verified 01/19/25 13:51) Diarrhea quetiapine fumarate (From Seroquel) Adverse Reaction (Verified 01/19/25 13:51) Other [facility] Medical History (Updated 01/19/25 @ 13:[address] Alon Ambrose MD) GERD (gastroesophageal reflux disease) Hemorrhoids Diarrhea Abdominal pain Surgical History Hx of cholecystectomy Social History (Updated 01/19/25 @ 13:50 by aTmara Contreras LPN) Smoking Status: Current every day smoker tobacco type: cigarettes and e-cigarettes alcohol intake: never substance use type: marijuana HPI HPI HPI: Patient is a 34-year-old male who comes in with diarrhea and increased bowel movements. The patient reports he has 5-10 bowel movements a day. He says has been going on for about 7 years since he had his gallbladder out. He said anything greasy makes him have pain and diarrhea. He reports bloating as well and he does have a history of H. pylori infection. His last scopes were in 2018 and he had multiple ulcers. ROS General General: No weight change, appetite, fatigue, colon cancer, breast cancer or weakness HEENT HEENT: No difficulty swallowing, eye injury, eye surgery, swollen glands or hoarseness Endo Endocrine: No thyroid disease, diabetes mellitus, thyroid cancer, Hair loss, heat intolerance or cold intolerance Skin Skin: No rash or changing moles Musc Musculoskeletal: No back problems, arthritis, rheumatoid arthritis, gout or joint pain Cardio Cardiovascular: No murmur, pacemaker, heart disease, atrial fibrillation, high blood pressure, heart attack, heart stent, palpitations, shortness of breath with exertion or chest pain Psych Psychiatric: Yes anxiety; No depression or hearing voices Resp Respiratory: No shortness of breath, No sleep apnea, No cough, No COPD, No asthma, No emphysema and No wheezing Gastro Gastrointestinal: Yes abdominal pain, No nausea or vomiting, Yes diarrhea, No constipation, Yes blood in stool, Yes acid reflux, Yes hemorrhoids, Yes ulcers, No gallbladder problem and No black,tarry stools Zafar Hematologic: No blood thinners, No blood disorders, No bleeding, No anemia and No blood clots Neuro Neurologic: No numbness, No tingling and No weakness Exam Const General: cooperative Orientation: alert and oriented x3 HENMT Head: normal to inspection Neck Neck: normal visual inspection and full ROM Chest Chest palpation & inspection: normal inspection of the chest Resp Effort & Inspection: normal respiratory effort Auscultation: clear to auscultation bilaterally Cardio Rate: regular rate Rhythm: regular rhythm GI Inspection: non-distended Palpation: soft and nontender Skin General: no rashes or lesions noted Neuro General: patient alert and patient oriented x3 Extrem General: full ROM Psych Appearance: grossly normal Mental Status: mental status grossly normal Assessment and Plan Assessment and Plan (1) GERD (gastroesophageal reflux disease): Status: Acute Qualifiers: Esophagitis presence: esophagitis presence not specified Qualified Code(s): K21.9 - Gastro-esophageal reflux disease without esophagitis (2) Abdominal pain: Status: Acute Qualifiers: Abdominal location: epigastric Qualified Code(s): R10.13 - Epigastric pain (3) Diarrhea: Status: Acute Qualifiers: Diarrhea type: unspecified type Qualified Code(s): R19.7 - Diarrhea, unspecified Orders: Orders Colonoscopy Today EGD Today Medications: Discontinued clindamycin HCl (Cleocin HCl) Discontinued Reason: Order Completed 300 mg PO Q6H 40 CAPSULES 0RF oxycodone-acetaminophen 5-325 mg Discontinued Reason: Pt no longer taking 1 TAB PO Q6H PRN 3 days PRN 12 TABLETS 0RF Pain S62.633B - Displaced fracture of distal phalanx of left middle finger, initial encounter for open fracture Plan The patient is still having bloating and diarrhea after eating. This has been going on for 7 years. He has 5-10 bowel movements a day. I would like to perform an EGD and colonoscopy to evaluate. I will get random biopsies of the stomach to check for H. pylori and we will check for ulceration and I will get random biopsies of the colon to check for colitis or inflammatory bowel disease. I explained endoscopy in detail to the patient. I explained the risks including but not limited to stroke or heart attack with anesthesia, perforation of the GI tract, bleeding, infection. I explained that any of these could necessitate further emergency surgery. The patient understands and all questions were answered sufficiently. The patient wishes to proceed with procedure. Alon Ambrose MD Pager: [facility] [address] [place] [address], [address] [place] [address] Office: I have examined the patient and the H&P has been reviewed. There are no clinical changes since date of exam.
--- NOTE | 2025-02-16 08:10 | PCM.PRE.AN2 ---
ASA Classification* ASA Classification ASA Classification: 2 Assessment & Plan Anesthesia* Anesthesia Assessment Anesthesia Assessment: Discussed sedation and/or anesthesia options, risks, benefits, and alternatives with patient/parents/legal guardian/POA. Questions invited. The patient/parents/legal guardian/POA seems to understand and agrees to proceed with anesthesia plan. Reviewed the physical assessment, medical history, allergy history and patient home medications list prior to surgery/procedure/anesthetic and documented any changes. Performed airway and anesthesia risk assessments. Anesthesia Type Anesthesia Type: MAC Anesthesia Focused Assessment* Temperature: 98.0 F Pulse Rate: 70 Blood Pressure: 124/75 Respiratory Rate: 18 Pulse Ox: 98 Airway Assessment Mouth opens: >3 cm Mallampati Score: II Labs Anesthesia Preop lab: CBC WBC, (4.4-11.0) 10.1 K/mm3 05/28/18, 17:12 RBC, (4.6-6.2) 4.49 M/mm3 L 05/28/18, 17:12 Hgb, (13.0-16.5) 14.2 g/dl 05/28/18, 17:12 Hct, (40-54) 40.1 % 05/28/18, 17:12 Plt Count, (150-450) 208 K/mm3 05/28/18, 17:12 CHEMISTRY Potassium, (3.5-5.1) 3.8 mmol/L 05/28/18, 17:12 Sodium, (136-145) 141 mmol/L 05/28/18, 17:12 BUN, (7-18) 12 mg/dL 05/28/18, 17:12 Creatinine, (0.70-1.30) 0.85 mg/dL 05/28/18, 17:12 Glucose, (74-106) 109 mg/dL H 05/28/18, 17:12 COAG Pre-Assessment Diagnosis/Proposed Procedure Planned Operative Procedure(s): EGD,CSCOPE Anesthesia History Anesthesia History - retort pre cooker: Anesthesia History - retort pre cooker Hx Hospitalization No 02/12/25 13:51 Any Problems With Anesthesia No 02/12/25 13:51 Cholinesterase deficiency No 02/12/25 13:51 You/Your Family Experience No 02/12/25 13:51 fever (hyperthermia) with Relationship Recent Exposure to Contagious No 02/16/25 08:03 Disease Does patient have nerve No 02/12/25 13:51 stimulator Patient instructed to have device shut off --Does patient have Pacemaker No 02/16/25 08:03 or ICD? When Was Last Pacemaker Check QUESTION #4 FULL TEXT: You/Your Family Experience fever (hyperthermia) with Anesthesia Last Oral Intake Last Oral intake: Last Oral Intake NPO since 23:00 02/16/25 08:03 Meds taken in AM with sips of No 02/16/25 08:03 water? Meds patient instructed to take am of surgery PONV PONV - retort pre cooker: PONV - retort pre cooker Female No 02/12/25 13:51 HX of Motion Sickness No 02/12/25 13:51 HX of N/V After Surgery No 02/12/25 13:51 Non-Smoker No 02/12/25 13:51 Duration of Surgery greater No 02/12/25 13:51 than 60 minutes Number of Risk Factors PONV Score Height & Weight Height & Weight: Anesthesia: Height & Weight Height 6 ft 1 in 02/16/25 08:03 Weight: 96 kg 02/16/25 08:03 Body Mass Index (BMI) 27.9 02/16/25 08:03 Respiratory Assessment Respiratory Assessment - retort pre cooker: Respiratory Tract Infection Hx - retort pre cooker Hx Respiratory Tract Infection No 02/12/25 13:51 STOP Sleep Apnea STOP Sleep Apnea - retort pre cooker: STOP Sleep Apnea - retort pre cooker Hx Hypertension No 02/12/25 13:51 Hx Sleep Apnea No 02/12/25 13:51 CPAP BIPAP Do you snore loudly (louder No 02/12/25 13:51 than talking or can be heard Do you often feel tired/ No 02/12/25 13:51 fatigued/ sleepy during daytime? Has anyone observed you stop No 02/12/25 13:51 breathing during sleep? STOP Results Negative 02/12/25 13:51 QUESTION #5 FULL TEXT : Do you snore loudly (louder than talking or can be heard through closed doors)? 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 Specify any problems Hx of Preganancy in last 3 N/A 02/12/25 13:51 Months Nurse Filling Out Transfusion DSCHRIBER 02/12/25 13:51 & Questions: Date: 02/12/25 02/12/25 13:51 Time: 13:52 02/12/25 13:51 Patient unable to answer at this time (ie. confused, unrespo /Reproduction History /Reproductive History - retort pre cooker: /Reproductive Hx- retort pre cooker Hx Now No 02/12/25 13:51 Gestational Age (in weeks): EDC: Hx Hx Para Hx Section SAB No 02/12/25 13:51 Active Medications Active Medications: Current Medications Generic Name Dose Route Start Last Admin Trade Name Freq PRN Reason Stop Dose Admin Lactated Ringer's 1,000 mls @ 15 mls/hr 02/16/25 08:00 IV .Q48H MANDIE PFSH Medical History Wears contact lenses Wears glasses Anxiety Alcohol use Marijuana use Migraine headache Injury of head and neck History of ulceration Gastric reflux Leg cramps Vapes nicotine containing substance Hemorrhoids Diarrhea Abdominal pain Home Medications ?Medication ?Instructions ?Recorded ?Last Taken ?Type dicyclomine 10 mg capsule 10 - 20 mg PO Q6 PRN cramps 01/19/25 Unknown History dextroamphetamine-amphetamine 20 20 mg PO BID 02/12/25 02/15/25 History mg tablet (Adderall) Allergy/AdvReac Type Severity Reaction Status Date / Time hydrocodone Allergy Rash Verified 02/16/25 08:02 Penicillins Allergy Unknown Verified 02/16/25 08:02 amoxicillin AdvReac Rash Verified 02/16/25 08:02 amoxicillin trihydrate (From AdvReac Diarrhea Verified 02/16/25 08:02 Augmentin) potassium clavulanate (From AdvReac Diarrhea Verified 02/16/25 08:02 Augmentin) quetiapine fumarate (From AdvReac Other Verified 02/16/25 08:02 Seroquel) Surgical History Hx of colonoscopy Hx of cholecystectomy Social History Smoking Status: Current every day smoker tobacco type: cigarettes and e-cigarettes alcohol intake: never substance use type: marijuana Review of Systems (Anesthesia) ROS Narrative System reviewed and no additional complaints, except as documented.
[2025-02-16] MEDS: Lactated Ringers 1,000 ML 15 ML IV (08:12)
--- NOTE | 2025-02-16 09:00 | COLBX_PTH ---
PATIENT: DERRICK RAYMUNDO LOC: EN U#:[id number] AGE/SX: 34/M ROOM: RE02/16/[address]: Dr. Alon Ambrose MD : 1990 BED: DIS: 02/16/2025 SPEC #: [id number] RECD: 02/16/25 13:17 STATUS: DEVI REOrtiz #: [id number] SALOME: 02/16/25 09:[address]: Alon Ambrose DEPT: SURGICAL PATHOLOGY RECD BY: Jung Cagle ENTERED: 02/16/25 14:14 SP TYPE: COLON BX OTHR DR: Cara Delacruz, TECHNICAL ADMINISTRATIVE ASSISTANT-C Tissues: A - Gastric mucous membrane B - COLON BIOPSY Procedures: Immunohistochemical Stains Surgery Specimen Level IV HEADER OPERATION: Colonoscopy with biopsy, EGD with biopsy PRE-OP DIAGNOSIS: GERD, abdominal pain, diarrhea TISSUE SUBMITTED: A- Gastric antrum biopsy, B- Random colon biopsy MICROSCOPIC DIAGNOSIS A. Gastric antrum, biopsy: * Chronic gastritis with focal erosion. * IHC negative for H. pylori organisms. B. Colon, random, biopsy: * No specific pathologic change. MICROSCOPIC DESCRIPTION Slides are reviewed. All matched controls reacted appropriately. These tests were developed and their performance characteristics determined by [facility]. They may not have been cleared or approved by the [place]. Food and Drug Administration. The FDA has determined that such clearance or approval is not necessary. The above immunohistochemical markers and/or special stains have been reviewed by the Pathologist.. GROSS DESCRIPTION A. Received in fixative is one container labeled with the patient's name and designated Gastric antrum biopsy. The specimen consists of two irregular fragments of dumont tissue that measure 0.6 and 0.7 cm. The specimen is totally submitted in one cassette. B. Received in fixative is one container labeled with the patient's name and designated Random colon biopsy. The specimen consists of multiple irregular fragments of dumont tissue that in aggregate measure 1.2 x 0.7 x 0.2 cm. The specimen is totally submitted in one cassette. [place] 02/16/2025 CPT:75448z1,23011
[2025-02-16] MEDS: Lidocaine 1% (5 ml sdv) 5 ML Vial IV (09:25)
--- NOTE | 2025-02-16 09:47 | OP.EGD_ITS ---
Patient Name: Wing Bower Procedure Date: 02/16/2025 9:17 AM Date of : 1990 Age: 34 Procedure: Upper GI endoscopy Indications: Abdominal bloating, Diarrhea Providers: Alon Ambrose MD Referring MD: Alon Ambrose MD Medicines: Propofol per Anesthesia Patient Profile: This is a 34 year old male. Refer to note in patient chart for documentation of history and physical. Complications: No immediate complications. Estimated blood loss: Minimal. Procedure: Pre-Anesthesia Assessment: - Prior to the procedure, a History and Physical was performed, and patient medications and allergies were reviewed. The patient's tolerance of previous anesthesia was also reviewed. The risks and benefits of the procedure and the sedation options and risks were discussed with the patient. All questions were answered, and informed consent was obtained. Prior Anticoagulants: The patient has taken no anticoagulant or antiplatelet agents. After reviewing the risks and benefits, the patient was deemed in satisfactory condition to undergo the procedure. After obtaining informed consent, the endoscope was passed under direct vision. Throughout the procedure, the patient's blood pressure, pulse, and oxygen saturations were monitored continuously. The Endoscope was introduced through the mouth, and advanced to the third part of duodenum. The upper GI endoscopy was accomplished without difficulty. The patient tolerated the procedure well. Scope In: 9:27:16 AM Scope Out: 9:30:16 AM Total Procedure Duration Time 0 hours 3 minutes 0 seconds Findings: The esophagus was normal. The stomach was normal. The examined duodenum was normal. Biopsies were taken with a cold forceps in the gastric antrum for Helicobacter pylori testing. Impression: - Normal esophagus. - Normal stomach. - Normal examined duodenum. - Biopsies were taken with a cold forceps for Helicobacter pylori testing. Recommendation: - Discharge patient to home. - Resume previous diet. - Continue present medications. - Await pathology results. Procedure Code(s): --- Professional --- 17500, Esophagogastroduodenoscopy, flexible, transoral; with biopsy, single or multiple Diagnosis Code(s): --- Professional --- R14.0, Abdominal distension (gaseous) R19.7, Diarrhea, unspecified CPT copyright 2021 [employer]. All rights reserved. The codes documented in this report are preliminary and upon robot technician review may be revised to meet current compliance requirements. Alon Ambrose MD 02/16/2025 9:47:09 AM This report has been signed electronically. Number of Addenda: 0 Note Initiated On: 02/16/2025 9:17 AM
--- NOTE | 2025-02-16 09:47 | OP.PROVAT_ITS ---
02/16/2025 [place] Kidd Re : Upper GI endoscopy procedure for Wing Madrigalr Jayme This procedure was performed on Sunday, February 16, 2025. My impressions and recommendations are as follows: Impressions : - Normal esophagus. - Normal stomach. - Normal examined duodenum. - Biopsies were taken with a cold forceps for Helicobacter pylori testing. Recommendations : - Discharge patient to home. - Resume previous diet. - Continue present medications. - Await pathology results. My findings are described in the full procedure note, which is enclosed. If I can be of further assistance, please feel free to contact me at Doctor phone number(s): , Work: . Sincerely, Alon Ambrose MD 02/16/2025 9:47:09 AM This report has been signed electronically.
--- NOTE | 2025-02-16 09:48 | OP.COLON_ITS ---
Patient Name: Wing Bower Procedure Date: 02/16/2025 9:30 AM Date of : 1990 Age: 34 Procedure: Colonoscopy Indications: Chronic diarrhea Providers: Alon Ambrose MD Referring MD: Alon Ambrose MD Medicines: Propofol per Anesthesia Patient Profile: This is a 34 year old male. Refer to note in patient chart for documentation of history and physical. Last Colonoscopy: none. The patient's first colonoscopy is today. Complications: No immediate complications. Estimated blood loss: Minimal. Procedure: Pre-Anesthesia Assessment: - Prior to the procedure, a History and Physical was performed, and patient medications and allergies were reviewed. The patient's tolerance of previous anesthesia was also reviewed. The risks and benefits of the procedure and the sedation options and risks were discussed with the patient. All questions were answered, and informed consent was obtained. Prior Anticoagulants: The patient has taken no anticoagulant or antiplatelet agents. After reviewing the risks and benefits, the patient was deemed in satisfactory condition to undergo the procedure. - Prior to the procedure, a History and Physical was performed, and patient medications and allergies were reviewed. The patient's tolerance of previous anesthesia was also reviewed. The risks and benefits of the procedure and the sedation options and risks were discussed with the patient. All questions were answered, and informed consent was obtained. Prior Anticoagulants: The patient has taken no anticoagulant or antiplatelet agents. ASA Grade Assessment: II - A patient with mild systemic disease. After reviewing the risks and benefits, the patient was deemed in satisfactory condition to undergo the procedure. After I obtained informed consent, the scope was passed under direct vision. Throughout the procedure, the patient's blood pressure, pulse, and oxygen saturations were monitored continuously. The Colonoscope was introduced through the anus and advanced to the cecum, identified by appendiceal orifice and ileocecal valve. The colonoscopy was performed without difficulty. The patient tolerated the procedure well. The quality of the bowel preparation was good. The ileocecal valve, appendiceal orifice, and rectum were photographed. Scope In: 9:32:27 AM Scope Withdrawal Time 0 hours 5 minutes 52 seconds Scope Out: 9:44:35 AM Total Procedure Duration Time 0 hours 12 minutes 8 seconds Findings: The entire examined colon appeared normal on direct and retroflexion views. Biopsies for histology were taken with a cold forceps from the entire colon for evaluation of microscopic colitis. Impression: - The entire examined colon is normal on direct and retroflexion views. - Biopsies were taken with a cold forceps from the entire colon for evaluation of microscopic colitis. Recommendation: - Discharge patient to home. - Resume previous diet. - Continue present medications. - Await pathology results. - Repeat colonoscopy in 10 years for screening purposes. Procedure Code(s): --- Professional --- 66201, Colonoscopy, flexible; with biopsy, single or multiple Diagnosis Code(s): --- Professional --- K52.9, Noninfective gastroenteritis and colitis, unspecified CPT copyright 2021 [employer]. All rights reserved. The codes documented in this report are preliminary and upon roof designer review may be revised to meet current compliance requirements. Alon Ambrose MD 02/16/2025 9:48:28 AM This report has been signed electronically. Number of Addenda: 0 Note Initiated On: 02/16/2025 9:30 AM
--- NOTE | 2025-02-16 09:49 | OP.PROVAT_ITS ---
02/16/2025 [place] Kidd Re : Colonoscopy procedure for Wing Madrigalr Jayme This procedure was performed on Sunday, February 16, 2025. My impressions and recommendations are as follows: Impressions : - The entire examined colon is normal on direct and retroflexion views. - Biopsies were taken with a cold forceps from the entire colon for evaluation of microscopic colitis. Recommendations : - Discharge patient to home. - Resume previous diet. - Continue present medications. - Await pathology results. - Repeat colonoscopy in 10 years for screening purposes. My findings are described in the full procedure note, which is enclosed. If I can be of further assistance, please feel free to contact me at Doctor phone number(s): , Work: . Sincerely, Alon Ambrose MD 02/16/2025 9:48:28 AM This report has been signed electronically.
--- NOTE | 2025-02-16 09:50 | PCM.POST.ANE ---
Anesthesia: Postop Eval I Current Vital Signs Temperature: 97 F Pulse Rate: 71 Blood Pressure: 112/71 Respiratory Rate: 12 Pulse Ox: 100 Oxygen Delivery Method: Room Air Assessment Airway patent: Yes Spontaneous unlabored respirations: Yes Mental status: Asleep nausea: No Vomiting: No Anesthesia Complication: No Fluid Hydration Crystalloid volume administer (ml): 300 Total IV fluid infused: 300 Progress Note Anesthesia document: Postop Eval 1 completed: Yes
--- NOTE | 2025-02-16 10:29 | POSTOPAN2_ITS ---
Anesthesia Postop Eval I Sum Postop Eval Completion status Anesthesia document: Postop Eval 1 completed: Yes Anesthesia Postop Eval I Summary Anesthesia Postop Eval I Summary: Anesthesia Postop Eval I: Assessment Summary Airway patent Yes 02/16/25 09:51 [email or web address] [email or web address] Spontaneous unlabored Yes 02/16/25 09:51 CYLINDER [email or web address] respirations Mental status Asleep 02/16/25 09:51 [email or web address] [email or web address] nausea No 02/16/25 09:51 CYLINDER [email or web address] Vomiting No 02/16/25 09:51 CYLINDER [email or web address] Anesthesia Postop Eval I: Fluid Summary Crystalloid volume administer 300 02/16/25 09:51 CYLINDER [email or web address] (ml) Colloids volume administered ( ml) Blood Product volume administered (ml) Total IV fluid infused 300 02/16/25 09:51 CYLINDER [email or web address] Anesthesia Postop Eval I: Summary Notes Anesthesia Complication No 02/16/25 09:51 CYLINDER [email or web address] Anesthesia Complication Comment: Post-operative progress note Anesthesia: Postop Eval II Evaluation Mental status: Awake Pain Level: 1 nausea: No Vomiting: No
--- NOTE | 2025-02-16 10:29 | PCM.POSTANE2 ---
Anesthesia Postop Eval I Sum Postop Eval Completion status Anesthesia document: Postop Eval 1 completed: Yes Anesthesia Postop Eval I Summary Anesthesia Postop Eval I Summary: Anesthesia Postop Eval I: Assessment Summary Airway patent Yes 02/16/25 09:51 [email or web address] [email or web address] Spontaneous unlabored Yes 02/16/25 09:51 FLY [email or web address] respirations Mental status Asleep 02/16/25 09:51 FLY [email or web address] nausea No 02/16/25 09:51 FLY [email or web address] Vomiting No 02/16/25 09:51 FLY [email or web address] Anesthesia Postop Eval I: Fluid Summary Crystalloid volume administer 300 02/16/25 09:51 FLY [email or web address] (ml) Colloids volume administered ( ml) Blood Product volume administered (ml) Total IV fluid infused 300 02/16/25 09:51 FLY [email or web address] Anesthesia Postop Eval I: Summary Notes Anesthesia Complication No 02/16/25 09:51 FLY [email or web address].SHOF Anesthesia Complication Comment: Post-operative progress note Anesthesia: Postop Eval II Evaluation Mental status: Awake Pain Level: 1 nausea: No Vomiting: No
== END 2025-02-16 10:18 | disposition home or self-care (01) ==
LOC: EN 07:46 → AC 07:47
PROVIDERS: PCP Nurse Practitioner Family; Referring Provider Nurse Practitioner Family; Visit Provider Surgery
PROC: 0DJD8ZZ Inspection of Lower Intestinal Tract, Via Natural or Artificial Opening Endoscopic (ICD-10-PCS; CPT 45378; principal; 2025-02-16 08:55)
DX: K52.9 Noninfective gastroenteritis and colitis, unspecified (principal); K21.9 Gastro-esophageal reflux disease without esophagitis; R14.0 Abdominal distension (gaseous); Z90.49 Acquired absence of other specified parts of digestive tract; F17.210 Nicotine dependence, cigarettes, uncomplicated; F17.290 Nicotine dependence, other tobacco product, uncomplicated; R10.13 Epigastric pain; K29.50 Unspecified chronic gastritis without bleeding
CPT/HCPCS: 44361; 45380; 88305; 88342

== ENCOUNTER → 2025-02-23 | Outpatient (CLI) | payer OTHER, SELFPAY ==
[2025-02-23 11:25] LABS: Hematocrit 44.1 % (40-54); Hemoglobin 15.8 g/dL (13.0-16.5); Immature Granulocytes Count 0.040 X10^3/uL (0.0-0.0); Mean Corp Hgb Conc 35.8 g/dL (32-36); Mean Corpuscular Volume 88.4 fL (80-94); Mean Platelet Vol. 9.9 fl (6.2-12.0); NRBC Flagged by Analyzer 0 % (0-5); Platelet Count 265 K/mm3 (150-450); RBC Distribution Width CV 12.5 % (11.6-14.6); RBC Distribution Width SD 40.6 fl (35.1-43.9); Red Blood Count 4.99 M/mm3 (4.6-6.2); White Blood Count 8.2 K/mm3 (4.4-11.0)
[2025-02-23 12:01] LABS: Cholesterol 151 mg/dL (<=200); Low Density Lipoprotein Calc. 79 mg/dL; Triglycerides 106 mg/dL; Very Low Density Lipoprotein 21 mg/dL (5-40); cholesterol:hdl ratio screen 2.95
[2025-02-23 12:19] LABS: AST(SGOT) 30 U/L (<=37); Alanine Aminotransfer ALT/SGPT 28 U/L (<=46); Albumin, Serum 4.9 g/dL (3.5-5.0); Alkaline Phosphatase 78 U/L (40-129); Anion Gap 12 (5-15); BUN 13 mg/dL (4-19); BUN/Creat Ratio 14.5 RATIO (10-20); Calcium,Total 9.7 mg/dL (7.6-11.0); Carbon Dioxide 24.7 mmol/L (21.0-32.0); Chloride 103 mmol/L (98-108); Globulin 3.0 g/dL (2.2-4.2); Glucose 99 mg/dL (70-99); Potassium 4.2 mmol/L (3.3-5.1)
== END | disposition home or self-care (01) ==
LOC: LAB 11:13 → LABSPEC 11:13
PROVIDERS: PCP Nurse Practitioner Family; Referring Provider Nurse Practitioner Family; Visit Provider Nurse Practitioner Family
DX: Z00.01 Encounter for general adult medical examination with abnormal findings (principal); R73.01 Impaired fasting glucose
CPT/HCPCS: 80053; 80061; 83036; 85025